=== PATIENT | male | born 1985 | race African-American/Black ===

== ENCOUNTER 2024-12-17 18:02 | Inpatient (IN) | payer OTHER, SELFPAY ==
--- OUTSIDE RECORDS SUMMARY | 2024-12-16 13:22 | XMS_ITS | Encounter Summary ---
Author Organization [facility] ystem Address [address] [place] [address] Phone Care Team Providers Care Sap Senior Developer Name Role Phone Emory PrattSarmad Primary Care Provider + [phone] Reason for Visit * Reason Comments Hallucinations X1 month Suicidal * Auth/Cert (Routine) Specialty Diagnoses / Procedures Referred By Arabella diamond Referred To Contact Diagnoses Schizoaffective disorder, bipolar type (CMS/HCC) Referral ID Status Reason Start Date Expiration Date Visits Re quested Visits Authorized [id number] 1 1 Encounter Details Date Type Department Care Team (Latest Contact Info) Description 12/16/2024 1:22 PM EDT - 12/17/2024 3:13 PM EDT Hospital Encounter [facility] - Emergency Department [address] [place] [phone] Mary Monte MD [address] [place] [address] [phone] Kemar Thompson MD [address] [place] [address] [phone] William Lizarraga MD [address] [place] [address] [phone] Maura Sim DO [address] [place] [address] Js Negron MD [address] [facility] [place] [address] Psychosis, unspecified psychosis type (CMS/HCC) (Primary Dx) Discharge Disposition: Psychiatric Facility Social History Tobacco Use Types Packs/Day Years Used Date Smoking Tobacco: Former Cigarettes Smokeless Tobacco: Never Tobacco Cessation:Counseling Given: Not Answered Sex and Gender Information Value Date Recorded Sex Assigned at Not on file Legal Sex Male 1:10 PM EDT Gender Identity Not on file Sexual Orientation Not on file documented as of this encounter Last Filed Vital Signs Vital Sign Reading Time Taken Comments Blood Pressure 108/69 12/17/2024 2:08 PM EDT Pulse 68 12/17/2024 2:08 PM EDT Temperature 36.8 C (98.2 F) 12/17/2024 2:08 PM EDT Respiratory Rate 16 12/17/2024 2:08 PM EDT Oxygen Saturation 99% 12/17/2024 2: 08 PM EDT Inhaled Oxygen Concentration - - Weight 87.5 kg (192 lb 14.4 oz) 12/16/2024 1:42 PM EDT Height - - Body Mass Index - - documented in this encounter Discharge Summaries * Kylee Damon NP - 12/17/2024 2:27 PM EDT Psychiatric Observation Discharge Summary Patient Name: Andre Rodriguez Date of : 1985 Date of Service: 12/17/2024 Length of Service: 12/16/2024 - 12/17/2024 Final Diagnoses: Problem List[1] CURRENT DIAGNOSIS: Schizoaffective disorder bipolar type Problem List[2] REASON FOR ADMISSION TO PO: CAH to harm self, increased paranoia HOSPITAL COURSE Admitted to Psychiatric Observation Service for management of psychosis Increased in Zyprexa at bedtime dosing Limited improvement in symptoms Psychosis continued throughout hospitalization continue to recommend inpatient psychiatric placement, [facility] has found placement at [facility] where patient will be transferred to for ongoing care. DISCHARGE MEDICATIONS Current Medications[3] MENTAL STATUS UPON DISCHARGE General Appearance: Well groomed, alert able to engage in assessment Attention: good Orientation: Person, Place, Location and Time Cooperativeness: Pleasant and easy to engage Psychomotor Activity: Laying in bed, does not appear restless Muscle Strength and Tone: WNL Gait and Station: No gait imbalances noted Eye Contact: Good Speech: Normal rate and rhythm Mood: depressed Affect: constricted range of affect Thought Process/Stream: Linear and organized Thought Content:talking about poor appetite Delusions: Paranoia ongoing Perceptual Hallucinations: Not reported today recent CAH Sensorium: Alert General fund of knowledge: Intact Recent & Remote Memory: Intact Insight: Poor Judgment: Impaired Suicidal thoughts: Not reported today recent SI Homicidal thoughts: Not reported ROS Constitutional: No fever, no weight loss Musculoskeletal: NO EPS Positive: depression, recent SI with CAH and paranoia Negative for: headache, sore throat, chest pain, dizziness, blurred vision, fatigue, joint pain, constipation, skin itchiness, dysuria, cough, SOB, vomiting, diarrhea, nausea, abdominal pain. CONDITION AT DISCHARGE Continues with depression and concerns for psychosis Danger to self with impaired insight/judgement at risk of harming self or others DISPOSITION Requires Psychiatric Inpatient level of Care POST-DISCHARGE PLAN: Admit to [facility] Accepting Physician - Dr. Ino Damon NP 12/17/2024 [1] Patient Active Problem List Diagnosis Schizoaffective disorder, bipolar type (CMS/HCC) [2] Patient Active Problem List Diagnosis Schizoaffective disorder, bipolar type (CMS/HCC) [3] Current Facility-Administered Medications: melatonin tablet 6 mg, 6 mg, Oral, Nightly, VainiCrystal maciasona Bushra, BACKPACKERS MANAGER, 6 mg at 12/16/242004 pantoprazole (PROTONIX) EC tablet 40 mg, 40 mg, Oral, Daily on empty stomach, Vainius, Aldona Bushra, BACKPACKERS MANAGER, 40 mg at 12/17/24 0629 propranolol LA (INDERAL LA) 24 hr capsule 60 mg, 60 mg, Oral, Daily, Vainius, Aldona Bushra, BACKPACKERS MANAGER, 60 mg at 12/17/24 0842 acetaminophen (TYLENOL) tablet 650 mg, 650 mg, Oral, q6h PRN, Janny Walden Bushra, BACKPACKERS MANAGER OLANZapine (ZYPREXA) tablet 2.5 mg, 2.5 mg, Oral, q6h PRN, Janny Walden CNP hydrOXYzine (ATARAX) tablet 25 mg, 25 mg, Oral, TID PRN, Janny Walden CNP OLANZapine (ZYPREXA) tablet 7.5 mg, 7.5 mg, Oral, Nightly, Janny Walden CNP, 7.5 mg at 12/16/242004 Current Outpatient Medications: propranolol LA (INDERAL LA) 60 MG 24 hr capsule, Take 60 mg by mouth daily, Disp: , Rfl: pantoprazole (PROTONIX) 40 MG EC tablet, Take 40 mg by mouth daily, Disp: , Rfl: Paliperidone Palmitate ER 156 MG/ML suspension prefilled syringe injection, Inject 156 mg intramuscularly, Disp: , Rfl: OLANZapine (ZYPREXA) 5 MG tablet, Take 5 mg by mouth nightly, Disp: , Rfl: melatonin 3 MG tablet, Take 6 mg by mouth, Disp: , Rfl: documented in this encounter Medications at Time of Discharge propranolol LA (INDERAL LA) 60 MG 24 hr capsule Take 60 mg by mouth daily 11/10/2024 02/09/20 pantoprazole (PROTONIX) 40 MG EC tablet Take 40 mg by mouth daily 06/05/2022 Paliperidone Palmitate ER 156 MG/ML suspension prefilled syringe injection Inject 156 mg intramuscularly 08/03/2024 OLANZapine (ZYPREXA) 5 MG tablet Take 5 mg by mouth nightly 11/10/2024 melatonin 3 MG tablet Take 6 mg by mouth 11/10/2024 documented as of this encounter Progress Notes * Kylee Damon NP - 12/17/2024 8:10 AM EDT PSYCH OBSERVATION PROGRESS NOTE Patient Name: Andre Rodriguez Date of : 1985 Date of Service: 12/17/2024 Time of Service: 8:10 AM Time spent with Patient: 28 minutes CURRENT DIAGNOSIS Schizoaffective bipolar type CC: no voices so far Brief history: The patient is a 39 y.o. male with a psychiatric history of Schizoaffective Disorder, Bipolar type who presented on 12/16/2024 to the Emergency Department on Section 12 with symptoms ofpsychosis, paranoid ideation, CAH hallucinations to kill himself with impaired judgement and insight. The patient has a history of inpatient hospitalizations and 1 prior suicide attempt. The patient was recently seen at [facility] for auditory hallucinations. In the ED patient reports CAH reporting voicestell him about a war occurring and that they are going to win and come kill him, reporting paranoiathat the voices are watching him and telling him to kill himself. Patient on Invega IM last dose 11/27, patient seen by [facility] crisis who report the patients family had concerns for poor po intake with paranoia from the voices telling him not to eat. Family expressing noticing a decline the past 2-3 weeks with increased isolation, odd behaviors and reports seeing this behavioral decline during past episodes. Family advocating for inpatient psychiatric placement. Patient reporting compliance with psychotropic medications recently reports decrease in Propranolol dosing in the community. Increased in his Zyprexa to 7.5 mg at bedtime for psychosis management while in the ED with Zyprexa PRN and Atarax PRN in the ED. [facility] involved with an inpatient bed search. 12/17/24 The patient reports he has not heard any further voices today after taking his Zyprexa last night. He reports his +CAH were present the past month and reports they were threatening the patient prior to coming to the hospital. He reports in the past when he was at [facility] in the spring that he received the Invega shot which helped the voices go away. He was aware of having Zyprexa PRN in the ED if thevoices return during the day. He reports ongoing poor appetite, he was agreeable to try and eat something this morning. The patient reports tolerating his psychiatric medications well denying any EPSor oversedation. Plan to continue to monitor patient psychiatric treatment needs while pending place ment.The patient has been stable/non-violent over the last 24 hours. [facility] treatment care planning, requesting COVID and EKG to help facilitate placement,these were ordered. Plan to continue to monitor patient psychiatric treatment needs while pending placement. CURRENT MEDICATIONS: Current Medications[1] CURRENT LABS: Recent Results (from the past 24 hours) Acetaminophen level Collection Time: 12/16/24 3:00 PM Result Value Ref Range Acetaminophen Level <5.1 <15.0 ug/mL CBC with auto differential Collection Time: 12/16/24 3:00 PM Result Value Ref Range WBC 5.5 4.5 - 10.8 10*3 ??l RBC 5.50 4.70 - 6.10 10*6 ??l Hemoglobin 14.3 14.0 - 18.0 g/dL Hematocrit 44.5 42.0 - 52.0 % MCV 81 80 - 95 fL MCH 26.0 25.4 - 39.0 pg MCHC 32.1 31.0 - 37.0 g/dL RDW 12.7 11.5 - 14.5 % Platelets 212 150 - 450 10*3 ??l MPV 11.9 (H) 7.0 - 11.0 fL Neutrophils % 54.5 40.0 - 80.0 % Lymphocytes % 31.7 20.0 - 40.0 % Monocytes % 11.4 (H) 2.0 - 10.0 % Eosinophils % 1.8 1.0 - 6.0 % Basophils % 0.4 0.0 - 1.0 % Immature Granulocyte % 0.2 0.0 - 0.9 % Neutrophils Absolute 3.01 2.00 - 7.00 K/mm3 Absolute Immature Granulocyte 0.01 0.00 - 0.09 K/mm3 Lymphocytes Absolute 1.75 1.00 - 3.00 K/mm3 Monocytes Absolute 0.63 0.20 - 1.00 K/mm3 Eosinophils Absolute 0.10 0.00 - 0.50 K/mm3 Basophils Absolute 0.02 0.00 - 0.10 K/mm3 Comprehensive metabolic panel Collection Time: 12/16/24 3:00 PM Result Value Ref Range Glucose 84 70 - 100 mg/dL BUN 10 6 - 19 mg/dL Creatinine 1.0 0.4 - 1.2 mg/dL eGFR >60.00 >60.00 mL/min/1.73m*2 Sodium 141 135 - 145 mmol/L Potassium 4.1 3.4 - 5.1 mmol/L Chloride 105 98 - 109 mmol/L CO2 20 (L) 22 - 29 mmol/L Anion Gap 16 6 - 16 mmol/L Calcium 9.7 8.5 - 10.5 mg/dL Total Bilirubin 0.9 0.2 - 1.2 mg/dL Alkaline Phosphatase 87 40 - 129 U/L ALT (SGPT) 14 0 - 40 U/L AST 17 0 - 37 U/L Total Protein 7.7 6.0 - 8.5 g/dL Albumin 4.3 3.3 - 5.2 g/dL Ethanol Collection Time: 12/16/24 3:00 PM Result Value Ref Range Ethanol <=10 0 - 10 mg/dL Salicylate level Collection Time: 12/16/24 3:00 PM Result Value Ref Range Salicylate Level <=3.0 3.0 - 30.0 mg/dL Urine drugs of abuse screen Collection Time: 12/16/24 8:00 PM Result Value Ref Range Amphetamines, Urine Screen None Detected None Detected Barbiturates, Urine Screen None Detected None Detected Benzodiazepines, Urine Screen None Detected None Detected Cocaine, Urine Screen None Detected None Detected Opiates, Urine Screen None Detected None Detected Cannabinoids (THC), Urine Screen None Detected None Detected Tricyclic Antidepressants, Urine Screen None Detected None Detected Fentanyl, Urine Screen None Detected None Detected Methadone, Urine Screen None Detected None Detected Oxycodone, Urine Screen None Detected None Detected Buprenorphine, Urine Screen None Detected None Detected Phencyclidine, Urine Screen None Detected None Detected CURRENT MENTAL STATUS Sensorium: Alert Appearance: Normal Grooming Behavior/Activity: Pleasant and easy to engage, sitting in bed Speech: Normal rate and rhythm Affect: Full range of affect, anxious Mood: I'm doing okay Thought Form: Linear and organized Thought Content: talking about improving AH, reports ongoing poor appetite Perceptual: None currently, recent CAH yesterday Delusional Thoughts: paranoia around eating ongoing Suicidal Ideation: None Homicidal Ideation: None Orientation: Person, Place, Location and Time Memory: intact Judgment/Insight: Impaired Attention/Concentration: Poor Capacity: Cannot leave AMA Health Care Proxy: not Invoked EPS: Within Normal Limits Gait: No gait imbalances noted ROS Constitutional: No fever, no weight loss Musculoskeletal: NO EPS Positive: recent CAH, recent SI denies today, ongoing depression Negative for: headache, sore throat, chest pain, dizziness, blurred vision, fatigue, joint pain, constipation, skin itchiness, dysuria, cough, SOB, vomiting, diarrhea, nausea, abdominal pain. TREATMENT RE-ASSESSMENT Reassessment demonstrates improving psychosis tolerating Zyprexa dosing increase, receptive to using PRN Zyprexa if psychosis returns during the day. The patient reports tolerating medications without EPS or oversedation. PRN medications used with positive response. Will continue to monitor ongoingpatient treatment needs. [facility] requesting EKG and COVID test to help with placement which were ordered. PLAN Continue with Psychiatric Observation admission Continue current medications Continue Zyprexa 7.5mg Continue Propranolol LA 60mg every day Continue Melatonin 6mg QHS PRNs Zyprexa 2.5mg PRN q 6hrs to target anxiety, restlessness/irritability, Atarax 25mg TID PRN to target anxiety. Contact family and outpatient providers as needed for treatment and disposition planning Kylee Damon NP 12/17/2024 8:10 AM [1] Current Facility-Administered Medications: melatonin tablet 6 mg, 6 mg, Oral, Nightly, VainiusJanny Bushra, BACKPACKERS MANAGER, 6 mg at 12/16/242004 pantoprazole (PROTONIX) EC tablet 40 mg, 40 mg, Oral, Daily on empty stomach, PiainiusJannye, BACKPACKERS MANAGER, 40 mg at 12/17/24628 propranolol LA (INDERAL LA) 24 hr capsule 60 mg, 60 mg, Oral, Daily, Vainius, Aldona Bushra, BACKPACKERS MANAGER, 60 mg at 12/16/242025 acetaminophen (TYLENOL) tablet 650 mg, 650 mg, Oral, q6h PRN, Janny Walden, BACKPACKERS MANAGER OLANZapine (ZYPREXA) tablet 2.5 mg, 2.5 mg, Oral, q6h PRN, Janny Walden BACKPACKERS MANAGER hydrOXYzine (ATARAX) tablet 25 mg, 25 mg, Oral, TID PRN, Janny Walden BACKPACKERS MANAGER OLANZapine (ZYPREXA) tablet 7.5 mg, 7.5 mg, Oral, Nightly, PiainiJanny macias Bushra, BACKPACKERS MANAGER, 7.5 mg at 12/16/242004 Current Outpatient Medications: propranolol LA (INDERAL LA) 60 MG 24 hr capsule, Take 60 mg by mouth daily, Disp: , Rfl: pantoprazole (PROTONIX) 40 MG EC tablet, Take 40 mg by mouth daily, Disp: , Rfl: Paliperidone Palmitate ER 156 MG/ML suspension prefilled syringe injection, Inject 156 mg intramuscularly, Disp: , Rfl: OLANZapine (ZYPREXA) 5 MG tablet, Take 5 mg by mouth nightly, Disp: , Rfl: melatonin 3 MG tablet, Take 6 mg by mouth, Disp: , Rfl: documented in this encounter H&P Notes * Janny Walden, RAFY - 12/16/2024 7:22 PM EDT PSYCHIATRIC OBSERVATION ADMISSION H&P REASON FOR CONSULT A psychiatric consult was placed by Dr. Mary Monte for evaluation of a patient with auditory hallucinations and paranoid ideation. The patient's record was reviewed, patient was interviewed, and clinical staff were consulted to complete this comprehensive psychiatric consultation. Patient Name: Andre Rodriguez Date of : 1985 Date of Service: 12/16/2024 Time of Service: 7:23 PM Length of Service: 75 minutes Source of information: Patient, Family, Staff collateral CHIEF COMPLAINT: The voices are fighting over me and the ones that will win will come to kill me. HISTORY OF PRESENT ILLNESS The patient is a 39 y.o. male with a psychiatric history of Schizoaffective Disorder, Bipolar type who presented on 12/16/2024 to the Emergency Department on Section 12 with symptoms of psychosis, paranoid ideation, CAH hallucinations to kill himself with impaired judgement and insight. The patient has a history of inpatient hospitalizations and 1 prior suicide attempt. The patient was recently seen at [facility] for auditory hallucinations. The patient presented sitting on stretcher was constricted, disorganized and easy to engage. The patient reported that his voices have been really bad this past month. The patient reported that the voices told him that there is a war outside and told him that they are fight over him and the voices that will win will come to kill him. The patient reported that the voices are watching his every move and told him to kill himself. The patient reported that not only are the voices after him but alsothe ruler of this earth is after him, but does not know what he looks like and he is scared. The patient reported that he has been compliant with his medication and got his last Invega IM 11/27/24. Thepatient denies suicidal ideation and homicidal ideation. Collateral from Tar Processing Technician Pati: Clinician reported that when she evaluated the patient he was endorsing CAH to kill himself and expressed that he was hopeless about the voices and that heavenis the only place that they would stop. Clinician reported that the patient did not elaborate on this SI. Clinician reported that the patient's siblings reported that the patient has had a low appetite the past two week and stating that the voices are telling him that the food is not clean and thathe has been having paranoid delusions about god and demons. Collateral from Sister Eugenie Rodriguez: Sister reported that she monitors her brother's mental healthand has seen a significant decline in the patient over the past 2 to 3 weeks as the patient has started to become isolated, has been posting weird pictures and stated to her that he has been hearing voices. Sister reported that she has seen this pattern in the patient and that these behaviors indicate a significant decline in mental health. Sister reported that she is concerned about this recent decline and is advocating for a higher level of care. At this time [facility] are involved in the treatment planning for this patient. Presenting Problem: CAH to kill self, AH, PI Frequency: increased over the past 3 weeks Modifiable factors: medication management, coping skills Severity: severe PAST PSYCHIATRIC HISTORY Outpatient psychiatric providers: Provider: Dr. Chiquita Lazaro Therapist: denies Past medication trials: Risperidone, Haldol, Cogentin History of inpatient psychiatric hospitalization: numerous History of suicide attempts: age 19, OD via aspirin History of Self-Injurious behavior: punches head to get rid of voices History of violence towards others: denies History of eating disorder:denies History of Trauma:denies FAMILY PSYCHIATRIC HISTORY Family history of psychiatric illness: denies SUBSTANCE HISTORY: Only listing what is appropriate History of: Alcohol use: Denies Tobacco use: Denies Marijuana use: Denies Opioid use: Denies Cocaine use: Denies Other: Denies History of detox/treatment admissions for substance use: denies History of substance related legal issues: denies MEDICAL/SURGICAL HISTORY: Name of outpatient PCP: Emory Pratt History of: Head injury: Denies Seizures: Denies METROLOGY TECHNICIAN infection: Denies Chronic pain: Denies Obstructive Sleep Apnea ([place]):Denies SOCIAL HISTORY: Living situation: lives with Sister and Friend : denies Children: denies 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 Social History Socioeconomic History Marital status: Single Spouse name: Not on file Number of children: Not on file Years of education: Not on file Highest education level: Not on file Occupational History Not on file Tobacco Use Smoking status: Former Types: Cigarettes Smokeless tobacco: Never Substance and Sexual Activity Alcohol use: Not on file Drug use: Not on file Sexual activity: Not on file Other Topics Concern Not on file Social History Narrative Not on file Social Drivers of Health Financial Resource Strain: Not on File (02/04/2022) Received from [facility] Financial Resource Strain Financial Resource Strain: 0 Food Insecurity: Not on File (02/04/2022) Received from [facility] Food Insecurity Food: 0 Transportation Needs: Not on File (02/04/2022) Received from [facility] Transportation Needs Transportation: 0 Physical Activity: Not on File (12/13/2018) Received from [facility] Physical Activity Physical Activity: 0 Stress: Not on File (12/13/2018) Received from [facility] Stress Stress: 0 Social Connections: Not on File (12/27/2023) Received from [facility] Social Connections Connectedness: 0 Intimate Partner Violence: Not on file Housing Stability: Not on File (02/04/2022) Received from [facility] Housing Stability Housin ALLERGIES: Allergies[1] RELEVANT LABS: Recent Results (from the past week) Acetaminophen level Collection Time: 12/16/24 3:00 PM Result Value Ref Range Acetaminophen Level <5.1 <15.0 ug/mL CBC with auto differential Collection Time: 12/16/24 3:00 PM Result Value Ref Range WBC 5.5 4.5 - 10.8 10*3 ??l RBC 5.50 4.70 - 6.10 10*6 ??l Hemoglobin 14.3 14.0 - 18.0 g/dL Hematocrit 44.5 42.0 - 52.0 % MCV 81 80 - 95 fL MCH 26.0 25.4 - 39.0 pg MCHC 32.1 31.0 - 37.0 g/dL RDW 12.7 11.5 - 14.5 % Platelets 212 150 - 450 10*3 ??l MPV 11.9 (H) 7.0 - 11.0 fL Neutrophils % 54.5 40.0 - 80.0 % Lymphocytes % 31.7 20.0 - 40.0 % Monocytes % 11.4 (H) 2.0 - 10.0 % Eosinophils % 1.8 1.0 - 6.0 % Basophils % 0.4 0.0 - 1.0 % Immature Granulocyte % 0.2 0.0 - 0.9 % Neutrophils Absolute 3.01 2.00 - 7.00 K/mm3 Absolute Immature Granulocyte 0.01 0.00 - 0.09 K/mm3 Lymphocytes Absolute 1.75 1.00 - 3.00 K/mm3 Monocytes Absolute 0.63 0.20 - 1.00 K/mm3 Eosinophils Absolute 0.10 0.00 - 0.50 K/mm3 Basophils Absolute 0.02 0.00 - 0.10 K/mm3 Comprehensive metabolic panel Collection Time: 12/16/24 3:00 PM Result Value Ref Range Glucose 84 70 - 100 mg/dL BUN 10 6 - 19 mg/dL Creatinine 1.0 0.4 - 1.2 mg/dL eGFR >60.00 >60.00 mL/min/1.73m*2 Sodium 141 135 - 145 mmol/L Potassium 4.1 3.4 - 5.1 mmol/L Chloride 105 98 - 109 mmol/L CO2 20 (L) 22 - 29 mmol/L Anion Gap 16 6 - 16 mmol/L Calcium 9.7 8.5 - 10.5 mg/dL Total Bilirubin 0.9 0.2 - 1.2 mg/dL Alkaline Phosphatase 87 40 - 129 U/L ALT (SGPT) 14 0 - 40 U/L AST 17 0 - 37 U/L Total Protein 7.7 6.0 - 8.5 g/dL Albumin 4.3 3.3 - 5.2 g/dL Ethanol Collection Time: 12/16/24 3:00 PM Result Value Ref Range Ethanol <=10 0 - 10 mg/dL Salicylate level Collection Time: 12/16/24 3:00 PM Result Value Ref Range Salicylate Level <=3.0 3.0 - 30.0 mg/dL MOST RECENT VITAL SIGNS: Vitals: 12/16/24 1709 BP: 128/81 Pulse: 81 Resp: 17 Temp: 99.4 ??F (37.4 ??C) SpO2: 97% MENTAL STATUS EXAM: Physical Exam: Musculoskeletal: moves all extremities; no abnormal movements Gait: normal EPS:none MSE: Appearance: wearing green scrubs and well groomed Behavior: cooperative, eye contact-poor, easy to engage Psychomotor Activity: within normal limits Speech: soft normal rate and rhythm Mood: depressed Affect: constricted range of affect Thought Process: tangential and disorganized Associations: no loosening of associations Thought Content: thinks voices and ruler of the earth is coming after him, they are going to kill him Suicidal Ideation: command auditory hallucination to kill himself Homicidal Ideation: no homicidal ideation Perceptions/Experiences: auditory hallucinations Insight: severely impaired Judgement: severely impaired Cognitive Exam: Orientation: oriented X3 Memory: immediate recall intact, short term memory intact, and talent development director memory intact Attention/Concentration: intact to observation Fund of Knowledge: average Language: normal comprehension Capacity: Cannot leave AMA Health Care Proxy: not invoked 1:1 SI Precautions assessment Suicidal thoughts: CAH telling him to kill himself. -Plan:No -Intent: No Suicidal or Self-harm behaviors: punching head to get rid of voices Risk factors: psychosis, prior SA Protective factors: Patient in good behavioral controls and is able to plan for safety, agreeable to reach out to staff if feeling unsafe. At this time recommend downgrade 2:1 suicide precautions, patient was having command hallucinationsto kill himself and continues to have auditory hallucinations, will continue to assess patient ongoing treatment needs throughout hospital stay. For additional documentation please refer to nursing psychosocial documentation for standardized C-SSRS re-assessment. REVIEW OF SYSTEMS Constitutional: No fever, no weight loss Musculoskeletal: NO EPS Positive: CAH to kill self, AH, PI Negative for: headache, sore throat, chest pain, dizziness, blurred vision, fatigue, joint pain, constipation, skin itchiness, dysuria, cough, SOB, vomiting, diarrhea, nausea, abdominal pain. CURRENT MEDICATIONS OUTPATIENT: Current Outpatient Medications Medication Instructions melatonin 6 mg OLANZapine (ZYPREXA) 5 mg, Nightly Paliperidone Palmitate ER 156 mg pantoprazole (PROTONIX) 40 mg, Daily propranolol LA (INDERAL LA) 60 mg, Daily ASSESSMENT: The patient presented to the Emergency Department with increased symptoms of auditory hallucinations, command hallucinations to kill self and paranoid hallucinations in the context of underlying worsening of psychosis. The patient presents with symptoms consistent with Schizoaffective disorder, bipolar type. Since the patient has had an increase in auditory hallucinations, having command hallucinations to kill himself, stating that the only way voices are going to go away is in heaven and increase in paranoid ideation he is at risk of hurting himself and is showing poor insight and judgement meeting Section 12 criteria and is recommended for higher level of care for safety and stabilizationand medication management. The patient reported being compliant with home medications of: Invega IM (last dose 11/27/24), Pantoprazole, Zyprexa, Melatonin and Propranolol and expressed interest in continuing these medications while in the Emergency Department. The patient reported that the only change that was made this month was to decrease the propranolol. The patient reported that he does not know why he has decompensated. Discussed and the patient agreed to increase Zyprexa to 7.5mg to help with current exacerbation ofpsychosis and to start Zyprexa 2.5mg PRN for psychosis, irritability, restlessness, anxiety and insomnia as well as Atarax 25mg PRN for anxiety. Discussed risks and benefits of these medications withthe patient and the patient was receptive to this medication treatment plan while in the ED. Continue to evaluate patient's mental status and monitor sleep and appetite closely, observe any potential side effects from psychiatric medications, and will recommend to start tapering antipsychotic medications once behavior is stabilized. Plan to continue to monitor possible interactions betweenpsychiatric medications and medical medications. Will continue to provide counseling to help patient deal with stressors, and provide education and support, while continuing to work with medicine to help facilitate patient's clinical progress. HPI and nursing notes were reviewed. [place] are involved in the ongoing treatment planning for thispatient. At this time the patient may not leave AMA. Will continue a 2:1 sitter at this time. Plan to continue to monitor the patient while the patient remains in the hospital. Recommend at this time admission to psychiatric observation for medication adjustment and monitoring, at this time patient presents as at risk of harming self and is showing poor judgement and insight. Medical review of the labs: Ethanol<=10, DIAGNOSTIC IMPRESSION: Schizoaffective disorder, bipolar type F Code: F25.0 Principal Problem: Schizoaffective disorder, bipolar type (CMS/[facility]) (POA: Yes) PLAN: Admit to Psychiatric Observation Medication plan: Restart and increased Zyprexa 7.5mg Restart Propranolol LA 60mg every day Restart Melatonin 6mg QHS PRN's: Start Zyprexa 2.5mg PRN q 6hrs to target anxiety, restlessness/irritability, insomnia and psychosis Start Atarax 25mg TID PRN to target anxiety. Monitor: Continue 2:1 video monitoring to mitigate suicide, psychosis and elopement risk and monitor ongoing patient safety while boarding in the ED. Patient may not leave AMA Discussed risks and benefits of medication plan with patient who was agreeable to aforementioned treatment plan. Update Dr. Conte to inform team of disposition. [facility] involved with treatment planning. Janny Walden CNP 12/16/2024 7:23 PM [1] No Known Allergies documented in this encounter ED Notes * Mary Monte MD - 12/16/2024 2:17 PM EDT CHIEF COMPLAINT: Chief Complaint Patient presents with Hallucinations X1 month Suicidal HISTORY OF PRESENT ILLNESS: Medical records and electronic records reviewed. Patient interviewed and patient examined. HPI provided by pt and cart review. Andre is a 39 y.o. male with PMH anxiety/depression and schizoaffective disorder, GERD, who presents for auditory hallucinations. Pt was seen at [facility] on 12/09/24 for auditory hallucinations. He was deemed safe for DC by psychiatry. He presents from [facility] on a section 12 for auditory hallucinations telling him to kill himself as well as depression and feelings of hopelessness. They also report paranoia and delusions. Patient is calm and cooperative here, denies complaints. Denies substance use. Denies trauma or physical complaints. PAST MEDICAL, FAMILY AND SOCIAL HISTORY: Past Medical History: Diagnosis Date Mental health disorder Surgical History[1] Social History Tobacco Use Smoking status: Former Types: Cigarettes Smokeless tobacco: Never Substance Use Topics Alcohol use: Not on file Social History Substance and Sexual Activity Drug Use Not on file No family history on file. MEDICATIONS: Medications melatonin tablet 6 mg (has no administration in time range) pantoprazole (PROTONIX) EC tablet 40 mg (has no administration in time range) propranolol LA (INDERAL LA) 24 hr capsule 60 mg (has no administration in time range) acetaminophen (TYLENOL) tablet 650 mg (has no administration in time range) OLANZapine (ZYPREXA) tablet 2.5 mg (has no administration in time range) hydrOXYzine (ATARAX) tablet 25 mg (has no administration in time range) OLANZapine (ZYPREXA) tablet 7.5 mg (has no administration in time range) REVIEW OF SYSTEMS: Constitutional: No fever or chills Head and Eyes: No visual change. ENT/Neck: No sore throat, nose bleed Heart: No chest pain, palpitations Lungs: No SOB GI: No bloody stools /Flank: No dysuria, frequency Musculoskeletal / back: No back or extremity pain Neuro: No headache Skin: No rash Psych: + depression Heme/Lymph: No bruising All other systems were reviewed and negative except as noted PHYSICAL EXAM: General:Vitals as per nursing notes. Patient is oriented x3. Patient is nontoxic appearing. Head/Eyes:The head is normocephalic and atraumatic. The pupils are equal sized and reactive to light. The extraocular muscles are intact. ENT:Patient's airway is intact. The mucous membranes are moist. Neck:The neck has a full-range of motion. Chest/Respiratory: Respiratory effort is normal. The lungs are clear to auscultation bilaterally. The chest wall is non-tender. Cardiovascular: The heart has a regular rate and rhythm.. GI/Abdomen: Abdomen is soft. The abdomen is nontender and nondistended. No rebound or guarding. Genitourinary:There is no costovertebral angle tenderness. Musculoskeletal:The patient has a normal range of motion for all limbs and joints. No significant lower extremity edema. Skin:The patient's skin is intact. Neurologic:The neurological exam shows no focal deficits. Psychiatric: Affect is flat/guarded. LABORATORY STUDIES: Labs Reviewed CBC WITH AUTO DIFFERENTIAL - Abnormal Result Value WBC 5.5 RBC 5.50 Hemoglobin 14.3 Hematocrit 44.5 MCV 81 MCH 26.0 MCHC 32.1 RDW 12.7 Platelets 212 MPV 11.9 (*) Neutrophils % 54.5 Lymphocytes % 31.7 Monocytes % 11.4 (*) Eosinophils % 1.8 Basophils % 0.4 Immature Granulocyte % 0.2 Neutrophils Absolute 3.01 Absolute Immature Granulocyte 0.01 Lymphocytes Absolute 1.75 Monocytes Absolute 0.63 Eosinophils Absolute 0.10 Basophils Absolute 0.02 COMPREHENSIVE METABOLIC PANEL - Abnormal Glucose 84 BUN 10 Creatinine 1.0 eGFR >60.00 Sodium 141 Potassium 4.1 Chloride 105 CO2 20 (*) Anion Gap 16 Calcium 9.7 Total Bilirubin 0.9 Alkaline Phosphatase 87 ALT (SGPT) 14 AST 17 Total Protein 7.7 Albumin 4.3 ACETAMINOPHEN LEVEL - Normal Acetaminophen Level <5.1 ETHANOL - Normal Ethanol <=10 SALICYLATE LEVEL - Normal Salicylate Level <=3.0 URINE DRUGS OF ABUSE SCREEN IMAGING STUDIES: No orders to display PROCEDURES: Procedures EKG: NA ED COURSE & MEDICAL DECISION MAKING: Differential includes decompensated psychiatric disease, psychosis. No signs of trauma or intoxication. Vital signs within normal limits. No physical complaints. No focal neurodeficits. Independent Interpretation of Studies: Basic lab work unremarkable. ED and nursing records reviewed. Additional pertinent available records reviewed: [facility] Everywhere reviewed Discussion of management with physician, qualified health professional, and/or appropriate source: Discussed with psychiatry, plan for admission patient bed search Escalation of care to admission or observation considered: Plan for inpatient psychiatric admission Consideration of treatments or testing, not performed: None at this time. Chronic Conditions affecting care include: History of schizoaffective disorder Social Determinants of Health significantly affecting the care and disposition of this patient include: Lives in the community Final diagnoses: [F29] Psychosis, unspecified psychosis type (CMS/HCC) [1] History reviewed. No pertinent surgical history. Mary Monte MD 12/16/241919 * Leslie Suarez RN - 12/16/2024 1:40 PM EDT Andre Rodriguez is a 39 y.o. male presenting with Hallucinations (X1 month) and Suicidal Pt [facility]o telling him to kill himself. Pt calm/cooperative en route. Pt vitally stable. documented in this encounter Miscellaneous Notes * Behavioral Health - Avila Baker MSW - 12/17/2024 12:26 PM EDT Accepted to [facility] 12/17 @ 4 PM, Dr. Mckinnon. Auth form sent to [facility]. * Behavioral Health - Mary Raymundo BA - 12/17/2024 8:33 AM EDT Clt being reveiwed for admission to [facility] [place] requesting EKG and UTOX, TW faxed UTOX and requested EKG from nursing. documented in this encounter Plan of Treatment Not on file documented as of this encounter Procedures Procedure Name Priority Date/Time Associated Diagnosis Comments COVID-19 ([facility]) Routine 12/17/2024 8:36 AM EDT URINE DRUGS OF ABUSE SCREEN STAT 12/16/2024 8:00 PM EDT CBC WITH AUTO DIFFERENTIAL STAT 12/16/2024 3:00 PM EDT ETHANOL STAT 12/16/2024 3:00 PM EDT ACETAMINOPHEN LEVEL STAT 12/16/2024 3 :00 PM EDT SALICYLATE LEVEL STAT 12/16/2024 3:00 PM EDT COMPREHENSIVE METABOLIC PANEL STAT 12/16/2024 3:00 PM EDT documented in this encounter Results * COVID-19 ([facility]) (12/17/2024 8:36 AM EDT) [facility] [address] COVID-19 ([facility]) PCR Negative Negative [facility]-DP H 12/17/2024 12:11 PM EDT [facility] Swab (Nasopharynx) Non-blood Collection / Unknown 12/17/2024 8:36 AM EDT 12/17/2024 8:42 AM EDT Kylee Damon NP LAB MICROBIOLOGY - GENERA L ORDERABLES Final Result [facility] [address] [place] [address], [place] [phone] * Urine drugs of abuse screen (12/16/2024 8:00 PM EDT) [facility] [address] Amphetamines, Urine Screen None Detected None Detected 12/16/2024 9:21 PM EDT [facility] Barbiturates, Urine Screen None Detected None Detected 12/16/2024 9:21 PM EDT [facility] Benzodiazepines, Urine Screen None Detected None Detected 12/16/2024 9:21 PM EDT [facility] Cocaine, Urine Screen None Detected None Detected 12/16/2024 9:21 PM [facility] Opiates, Urine Screen None Detected None Detected 12/16/2024 9:21 PM [facility] Cannabinoids (THC), Urine Screen None Detected None Detected 12/16/2024 9:21 PM EDT [facility] Tricyclic Antidepressants, Urine Screen None Detected None Detected 12/16/2024 9:21 PM EDT [facility] Fentanyl, Urine Screen None Detected None Detected 12/16/2024 9:21 PM EDT [facility] Methadone, Urine Screen None Detected None [facility] Oxycodone, Urine Screen None Detected None Detected 12/16/2024 9:21 PM T [facility] Buprenorphine, Urine Screen None Detected None Detected 12/16/2024 9:21 PM EDT [facility] Phencyclidine, Urine Screen None Detected None Detected 12/16/2024 9:21 PM EDT [facility] Urine Urine specimen obtained by clean catch procedure / Unknown Non-blood Collection / Unknown 12/16/2024 8:00 PM EDT 12/16/2024 8:52 PM EDT [facility] - 12/16/2024 9:21 PM EDT This is a screening test for urine drugs of ABUSE only, performed using Zohreh Beni analyzer. It is not designed or intended to monitor treatment or assess patient compliance. Those purposes are best served by a specific assay for the specific drug being administered. Like any screening test, this drug screen has inherent limitations. A result of NONE DETECTED indicates the absence of the major metabolites of the tested drugs or their presence at a level below the cut-off concentration (see below). False negative results may be due to the pharmacokinetics of the drug and/or the timing of the sample relative to the use of the drug in question. A POSITIVE result is a presumptive qualitative positive which indicates that the major metabolites of the tested drugs are likely present at or above their cut- off concentration (see below). False positive results may be caused by cross-reacting substances. Unconfirmed positive results of this screening test must not be used for non- medical purposes. Cutoffs for Drug Classes: Amphetamines 1000 ng/mL Barbiturates 200 ng/mL Benzodiazepines 100 ng/mL Cocaine 300 ng/mL Opiates 300 ng/mL TCA 300 ng/mL THC 50 ng/mL Fentanyl 5 ng/mL Methadone 300 ng/ml Oxycodone 100 ng/ml Buprenorphine 5 ng/ml Phencyclidine 25 ng/ml us Janny Walden [facility] LAB URINE ORDERABLES F inal Result [facility] [address] [place] [address], * Salicylate level (12/16/2024 3:00 PM EDT) Salicylate Level <=3.0 3.0 - 30.0 mg/dL 12/16/2024 3:38 PM EDT [facility] Blood Venous blood / Unknown Venipuncture / Unknown 12/16/2024 3:00 PM EDT 12/16/2024 3:09 PM EDT us Mary Monte MD LAB BLOOD ORDERABLES Final R esult [facility] [address] [place] [address], [place] [phone] * Ethanol (12/16/2024 3:00 PM EDT) Ethanol <=10 0 - 10 mg/dL 12/16/2024 3:38 PM EDT [facility] Comment:NONE DETECTED: Resul t <10 should be interpreted as NONE DETECTED. Blood Venous blood / Unknown Venipuncture / Unknown 12/16/2024 3:00 PM EDT 12/16/2024 3:09 PM EDT us Mary Monte MD LAB BLOOD ORDERABLES Final R esult [facility] [address] [place] [address], [place] [phone] * (ABNORMAL) Comprehensive metabolic panel (12/16/2024 3:00 PM EDT) Glucose 84 70 - 100 mg/dL 12/16/2024 3:42 PM EDT [facility] BUN 10 6 - 19 mg/dL 12/16/2024 3:42 PM EDT [facility] Creatinine 1.0 0.4 - 1.2 mg/dL 12/16/2024 3:42 PM EDT [facility] eGFR >60.00 >60.00 mL/min/1.7 3m*2 12/16/2024 3:42 PM EDT [facility] Sodium 141 135 - 145 mmol/L 12/16/2024 3:42 PM EDT [facility] Potassium 4.1 3.4 - 5.1 mmol/L 12/16/2024 3:42 PM EDT [facility] Chloride 105 98 - 109 mmol/L 12/16/2024 3:42 PM EDT [facility] CO2 20(L) 22 - 29 mmol/L 12/16/2024 3:42 PM EDT [facility] Anion Gap 16 6 - 16 mmol/L 12/16/2024 3:42 PM EDT [facility] Calcium 9.7 8.5 - 10.5 mg/dL 12/16/2024 3:42 PM EDT [facility] Total Bilirubin 0.9 0.2 - 1.2 mg/dL 12/16/2024 3:42 PM EDT [facility] Alkaline Phosphatase 87 40 - 129 U/L 12/16/2024 3:42 PM EDT [facility] ALT (SGPT) 14 0 - 40 U/L 12/16/2024 3:42 PM EDT [facility] AST 17 0 - 37 U/L 12/16/2024 3:42 PM EDT [facility] Total Protein 7.7 6.0 - 8.5 g/dL 12/16/2024 3:42 PM EDT [facility] Albumin 4.3 3.3 - 5.2 g/dL 12/16/2024 3:42 PM EDT [facility] Blood Venous blood / Unknown Venipuncture / Unknown 12/16/2024 3:00 PM EDT 12/16/2024 3:09 PM EDT Mary Monte MD LAB BLOOD ORDERABLES Final R esult [facility] [address] [place] [address], * (ABNORMAL) CBC with auto differential (12/16/2024 3:00 PM EDT) WBC 5.5 4.5 - 10.8 10*3 l 12/16/2024 3:24 PM EDT [facility] RBC 5.50 4.70 - 6.10 10*6 l 12/16/2024 3:24 PM EDT [facility] Hemoglobin 14.3 14.0 - 18.0 g/dL 12/16/2024 3:24 PM EDT [facility] Hematocrit 44.5 42.0 - 52.0 % [facility] M[facility] 81 80 - 95 fL 12/[facility]2024 3[facility] MCH 26.0 25.4 - 39.0 pg 12/16/2024 3:24 PM [facility] MCHC 32.1 31.0 - 37.0 g/dL 12/16/2024 3:24 PM [facility] RDW 12.7 11.5 - 14.5 % 12/16/2024 3:24 PM [facility] Platelets 212 150 - 450 10*3 l 12/16/2024 3:24 PM [facility] MPV 11.9(H) 7.0 - 11.0 fL 12/16/2024 3:24 PM [facility] Neutrophils % 54.5 40.0 - 80.0 % 12/16/2024 3:24 PM [facility] Lymphocytes % 31.7 20.0 - 40.0 % 12/16/2024 3:24 PM [facility] Monocytes % 11.4(H) 2.0 - 10.0 % 12/16/2024 3:24 PM [facility] Eosinophils % 1.8 1.0 - 6.0 % 12/16/2024 3:24 PM [facility] Basophils % 0.4 0.0 - 1.0 % 12/16/2024 3:24 PM [facility] Immature Granulocyte % 0.2 0.0 - 0.9 % 12/16/2024 3:24 PM [facility] Neutrophils Absolute 3.01 2.00 - 7.00 K/mm3 12/16/2024 3:24 PM [facility] Absolute Immature Granulocyte 0.01 0.00 - 0.09 K/mm3 12/16/2024 3:24 PM [facility] Lymphocytes Absolute 1.75 1.00 - 3.00 K/mm3 12/16/2024 3:24 PM [facility] Monocytes Absolute 0.63 0.20 - 1.00 K/mm3 12/16/2024 3:24 PM [facility] Eosinophils Absolute 0.10 0.00 - 0.50 K/mm3 12/16/2024 3:24 PM [facility] Basophils Absolute 0.02 0.00 - 0.10 K/mm3 12/16/2024 3:24 PM EDT [facility] Blood Venous blood / Unknown Venipuncture / Unknown 12/16/2024 3:00 PM EDT 12/16/2024 3:11 PM EDT us Mary Monte MD LAB BLOOD ORDERABLES Final R esult [facility] [address] [place] [address], [place] [phone] * Acetaminophen level (12/16/2024 3:00 PM EDT) Acetaminophen Level <5.1 <15.0 ug/mL 12/16/2024 3:38 PM EDT [facility] Blood Venous blood / Unknown Venipuncture / Unknown 12/16/2024 3:00 PM EDT 12/16/2024 3:09 PM EDT us Mary Monte MD LAB BLOOD ORDERABLES Final R esult Performing Organization Address City/[facility]/ZIP Co de Phone Number [facility] [address] [place] [address], [place] [phone] documented in this encounter Visit Diagnoses Diagnosis Schizoaffective disorder, bipolar type (CMS/HCC)- Primary Schizoaffective disorder, unspecified condition Psychosis, unspecified psychosis type (CMS/HCC) documented in this encounter Admitting Diagnoses Diagnosis Schizoaffective disorder, bipolar type (CMS/HCC) Schizoaffective disorder, unspecified condition documented in this encounter Administered Medications Active Administered Medications - up to 3 most recent administrations Medication Order MAR Action Action Date Dose Rate Site melatonin tablet 6 mg 6 mg, Oral, Nightly, First dose on Fri12/16/24 at 2100 Given 12/16/2024 8:05 PM EDT 6 mg OLANZapine (ZYPREXA) tablet 7.5 mg 7.5 mg, Oral, Nightly, First dose (after last modification) on Fri12/16/24 at 2100 Given 12/16/2024 8:05 PM EDT 7.5 mg pantoprazole (PROTONIX) EC tablet 40 mg 40 mg, Oral, Daily on empty stomach, First dose on Fri12/17/24 at 0600, - --------DO NOT CRUSH OR CHEW.-------- - Given 12/17/2024 6:29 AM EDT 40 mg propranolol LA (INDERAL LA) 24 hr capsule 60 mg 60 mg, Oral, Daily, First dose on Fri12/16/24 at 1917, - --------DO NOT CRUSH OR CHEW.-------- -, Hold for SBP less than: 100, Hold for HR less than: 60 Given 12/17/2024 8:42 AM EDT 60 mg Given 12/16/2024 8:26 PM EDT 60 mg documented in this encounter Active and Recently Administered Medications Times are shown in EDT. Scheduled Medication Order 12/15/2024 12/16/2024 12/17/2024 melatonin tablet 6 mg 6 mg, Oral, Nightly, First dose on Fri12/16/24 at 2099 2004 (Given - Provider: Haily Maldonado RN) 2099 (Due) OLANZapine (ZYPREXA) tablet 7.5 mg 7.5 mg, Oral, Nightly, First dose (after last modification) on Fri12/16/24 at 2099 2004 (Given - Provider: Haily Maldonado RN) 2099 (Due) pantoprazole (PROTONIX) EC tablet 40 mg 40 mg, Oral, Daily on empty stomach, First dose on Fri12/17/24 at 0600, - --------DO NOT CRUSH OR CHEW.-------- - 628 (Given - Provid er: Haily Maldondao RN) propranolol LA (INDERAL LA) 24 hr capsule 60 mg 60 mg, Oral, Daily, First dose on Fri12/16/24 at 191, - --------DO NOT CRUSH OR CHEW.-------- -, Hold for SBP less than: 100, Hold for HR less than: 60 2025 (Given - Provider: Haily Maldonado RN) 0842 (Given - Provider: Valerie Strange RN) PRN Medication Order 12/15/2024 12/16/2024 12/17/2024 acetaminophen (TYLENOL) tablet 650 mg 650 mg, Oral, Every 6 hours PRN, pain 1-3 or if patient refuses opiate (if ordered), pain 4-6 or if patient refuses opiate (if ordered), pain 7-10, Starting on Dora 12/16/24 at 1915 hydrOXYzine (ATARAX) tablet 25 mg 25 mg, Oral, 3 times daily PRN, anxiety, Starting on Dora 12/16/24 at 1916 OLANZapine (ZYPREXA) tablet 2.5 mg 2.5 mg, Oral, Every 6 hours PRN, restlessness / irritability, Psychosis (hallucinations, delusions, or disorganized thinking/speech), anxiety, insomnia, Starting on Dora 12/16/24 at 1916 documented in this encounter Additional Health Concerns Infection Onset Date Last Indicated Resolved Time Covid Possible 12/17/2024 12/17/2024 12/17/2024 12 :11 PM EDT documented as of this encounter Care Teams Sap Senior Developer Relationship Specialty Start Date End Date Emory Pratt [address] [place] [id number] PCP - General Nurse Practitioner 12/16/24 documented as of this encounter
--- OUTSIDE RECORDS SUMMARY | 2024-12-17 18:08 | XMS_ITS | Encounter Summary ---
Author Organization [facility] r Address [address] [place] [address] Phone Care Team Providers Care Infectious Disease Technician Name Role Phone Emory Pratt Unavailable [phone] Mark Sethi MD Unavailable Unavailable Kathleen Bella PA-C Unavailable Irene Ardon Unavailable Emory Pratt Primary Care Provider Chiquita Patterson NP Unavailable Reason for Visit * Reason Onset Date Comments Call Back 12/13/2024 Encounter Details Date Type Department Care Team (Late st Contact Info) Description 12/13/[address] [address] Chiquita Patterson, [place] [address] Call Back Social History Tobacco Use Types Packs/Day Years Used Date Smoking Tobacco: Never Smokeless Tobacco: Never Comments:Smoking History:[facility] er smoker Quit smoking: never smoker Alcohol Use Standard Drinks/Week Comments No 0 (1 standard drink = 0.6 oz pur e alcohol) Housing Answer Date Recorded What is your living situation today? I have a [facility] place to live 11/07/2024 Medications Answer Date Recorded Do you have trouble paying for prescriptions? No 11/07/2024 Utilities Answer Date Recorded Do you have trouble paying f or utilites (heat, electricity, internet, or phone bill)? No 11/07/2024 Caregiving [place] Answer Date Recorded Taking care of a child, elder, or disabled perso n No 11/07/2024 Employment Answer Date Recorded Looking for a job, changing jobs, or getting job training No 11/07/2024 Education Answer Date Recorded Getting more education or he lp with school (early child education under 5 years old, high school diploma or GED, college level education) Yes 11/07/2024 Food Answer Date Recorded Within the past 12 months, w ere you worried whether your food would run out before you got money to buy more? Sometimes true 11/07/2024 Within the past 12 months, d id the food you bought just didn't last and you didn't have money to get more? Patient declined to answer 11/07/2024 Transportation Answer Date Recorded Do you have trouble getting transportation to medical appointments? No 11/07/2024 Social Support Answer Date Recorded Getting more education or he lp with school (early child education under 5 years old, high school diploma or GED, college level education) Yes 11/07/2024 Immigration Answer Date Recorded Accessing resources to address immigration needs Yes 11/07/2024 Finance Answer Date Recorded Managing or growing your mon ey (open a bank account, file taxes, save money, improve credit, buy a house)? No 11/07/2024 Technology Answer Date Recorded Using a computer or phone to manage your health (use [employer], see medical records, make appointments, get refills, message care team) No 11/07/2024 EOV Answer Date Recorded Many patients we see here ar e being hurt, controlled or threatened by someone they have a relationship with. Are you in a relationship where someone is hurting, controlling or scaring you? No 06/10/2024 Sex and Gender Information Value Date Recorded Sex Assigned at Male 10/08/2022 10:05 AM EDT Legal Sex Male 10:52 PM EDT Gender Identity Male 2022 7:14 AM EDT Sexual Orientation Straight 09/18/2022 10 :18 PM EDT documented as of this encounter Miscellaneous Notes * Telephone Encounter - Nikolas Lim - 12/13/2024 1:24 PM EDT Pt called and asking for sooner appt with her provider however there's no available sooner than he already has. He is not feeling well he said. Please send him a message through Wrike. documented in this encounter Plan of Treatment Upcoming Encounters Date Type Department Care Team (Late st Contact Info) Description 01/01/2025 9:40 AM EDT Clinical Support [facility] [address] [place] [phone] 01/12/2025 5:00 PM EDT Office Visit [facility] [address] [place] [phone] Chiquita Patterson, BELINDA [address] [facility] [place] [address] documented as of this encounter Visit Diagnoses Not on filedocumented in this encounter Care Teams Infectious Disease Technician Relationship Specialty Start Date End Date Emory Pratt FNP PCP - Insurance 10/18/16 Emory Pratt FNP PCP - General 07/11/15 Mark Sethi MD Gastroenterology 06/10/19 Kathleen Bella PA-C Gastroenterology 05/02/20 [place] [address] Gastroenterology 01/04/22 Chiquita Patterson NP [address] [place] [address] Nurse Practitioner Psychiatry 09/23/24 documented as of this encounter
--- OUTSIDE RECORDS SUMMARY | 2024-12-17 18:08 | XMS_ITS | Encounter Summary ---
Author Organization [facility] r Address [address] [place] [address] Phone Care Team Providers Care Ball Thread Machine Tender Name Role Phone Emory Pratt Unavailable Mark Sethi MD Unavailable Unavailable Kathleen Bella PA-C Unavailable [phone] Irene Ardon Unavailable Emory Pratt Primary Care Provider Chiquita Patterson NP Unavailable Encounter Details Date Type Department Care Team (Late st Contact Info) Description 12/13/2024 Telephone [facility] [address] [place] [phone] Emory Pratt FNP [address] [place] [address] Social History Tobacco Use Types Packs/Day Years Used Date Smoking Tobacco: Never Smokeless Tobacco: Never Comments:Smoking History:[facility] er smoker Quit smoking: never smoker Alcohol Use Standard Drinks/Week Comments No 0 (1 standard drink = 0.6 oz pur e alcohol) Housing Answer Date Recorded What is your living situation today? I have a [facility] place to live 11/07/2024 Medications Answer Date Recorded Do you have trouble paying for prescriptions? No 11/07/2024 Utilities Answer Date Recorded Do you have trouble paying f or utilites (heat, electricity, internet, or phone bill)? No 11/07/2024 Caregiving [place] Answer Date Recorded Taking care of a [...] or phone to manage your health (use [employer], see medical records, make appointments, get refills, [...] PM EDT documented as of this encounter Plan of Treatment Upcoming Encounters Date Type Department Care Team (Late st Contact Info) Description 01/01/2025 9:40 AM EDT Clinical Support [facility] [address] [place] [phone] 01/12/2025 5:00 PM EDT Office Visit [facility] [address] [place] [address] [place] [address] documented as of this encounter Visit Diagnoses Not on filedocumented in this encounter Care Teams Ball Thread Machine Tender Relationship Specialty Start Date End Date Emory Pratt FNP PCP - Insurance 10/18/16 Emory Pratt FNP PCP - General 07/11/15 Mark Sethi MD Gastroenterology 06/10/19 Kathleen Bella PA-C Gastroenterology 05/02/20 [place] [address] Gastroenterology 01/04/22 Chiquita Patterson NP [address] [place] [address] Nurse Practitioner Psychiatry 09/23/24 documented as of this encounter
--- OUTSIDE RECORDS SUMMARY | 2024-12-17 18:08 | XMS_ITS | Encounter Summary ---
Author Organization [facility] r Address [address] [place] [address] Phone Care Team Providers Care Salt Plant Operator Name Role Phone Emory Pratt Unavailable Mark Sethi MD Unavailable Unavailable Kathleen Bella PA-C Unavailable [phone] Irene Ardon Unavailable Emory Pratt Primary Care Provider Chiquita Patterson NP Unavailable Encounter Details Date Type Department Care Team (Late st Contact Info) Description 12/13/2024 Orders Only [facility] [address] [place] [address], [place] [phone] Chiquita Patterson, [place] [address] Social History Tobacco Use Types Packs/Day Years Used Date Smoking Tobacco: Never Smokeless Tobacco: Never Comments:Smoking History:[facility] er smoker Quit smoking: never smoker Alcohol Use Standard Drinks/Week Comments No 0 (1 standard drink = 0.6 oz pur e alcohol) Housing Answer Date Recorded What is your living situation today? I have a [facility] place to live 11/07/2024 Medications Answer Date Recorded Do you have trouble paying for prescriptions? No 11/07/2024 Utilities Answer Date Recorded Do you have trouble paying f or utilites (heat, electricity, internet, or phone bill)? No 11/07/2024 Caregiving [place] Answer Date Recorded Taking care of a [...] or phone to manage your health (use behaviewt, see medical records, make appointments, get refills, [...] Description 01/01/2025 9:40 AM EDT Clinical Support [facility] [address] [place] [address] 01/12/2025 5:00 PM EDT Office Visit [facility] [address] [place] [address] [place] [address] documented as of this encounter Visit Diagnoses Not on filedocumented in this encounter Care Teams Salt Plant Operator Relationship Specialty Start Date End Date Emory Pratt FNP PCP - Insurance 10/18/16 Emory Pratt FNP PCP - General 07/11/15 Mark Sethi MD Gastroenterology 06/10/19 Kathleen Bella PA-C Gastroenterology 05/02/20 [place] [address] Gastroenterology 01/04/22 Chiquita Patterson NP [address] [place] [address] Nurse Practitioner Psychiatry 09/23/24 documented as of this encounter
--- OUTSIDE RECORDS SUMMARY | 2024-12-17 18:09 | XMS_ITS | Encounter Summary ---
[facility] Organization [facility] Address [address] [place] [address] Phone Care Team Providers Care Locomotive Firer Name Role Phone Emory Pratt Primary Care Provider Encounter Details Date Type Department Care Team (Latest Contact Info) Description 12/16/2024 Travel Social History Tobacco Use Types Packs/Day Years Used Date Smoking Tobacco: Former Cigarettes Smokeless Tobacco: Never Sex and Gender Information Value Date Recorded Sex Assigned at Not on file Legal Sex Male 1:10 PM EDT Gender Identity Not on file Sexual Orientation Not on file documented as of this encounter Plan of Treatment Not on file documented as of this encounter Visit Diagnoses Not on filedocumented in this encounter Care Teams Locomotive Firer Relationship Specialty Start Date End Date Emory Pratt [address] [place] [address] PCP - General Nurse Practitioner 12/16/24 documented as of this encounter
--- OUTSIDE RECORDS SUMMARY | 2024-12-17 18:09 | XMS_ITS | Encounter Summary ---
Author Organization [facility] r Address [address] [place] [address] Phone Care Team Providers Care Other Sports Coach Or Instructor Name Role Phone Emory Pratt Unavailable Mark Sethi MD Unavailable Unavailable Kathleen Bella PA-C Unavailable [phone] Irene Ardon Unavailable Emory Pratt Primary Care Provider Chiquita Patterson NP Unavailable Reason for Visit * Reason Onset Date Comments Medication Question 12/11/2023 Follow up wi th patient Encounter Details Date Type Department Care Team (Late st Contact Info) Description 12/11/2023 Telephone [facility] [address] [place] [address] Emory Pratt FNP [address] [place] [address] Medication Question (Follow up with patient ) Social History Tobacco Use Types Packs/Day Years Used Date Smoking Tobacco: Never Smokeless Tobacco: Never Comments:Smoking History:[place] Quit smoking: never smoker Alcohol Use Standard Drinks/Week Comments No 0 (1 standard drink = 0.6 oz pur e alcohol) Housing Answer Date Recorded What is your living situation today? I have a [facility] place to live 03/07/2023 Medications Answer Date Recorded Do you have trouble paying for prescriptions? No 03/07/2023 Utilities Answer Date Recorded Do you have trouble paying f or utilites (heat, electricity, internet, or phone bill)? No 03/07/2023 Caregiving [place] Answer Date Recorded Taking care of a child, elder, or disabled perso n No 03/07/2023 Employment Answer Date Recorded Looking for a job, changing jobs, or getting job training No 03/07/2023 Education Answer Date Recorded Getting more education or he lp with school (early child education under 5 years old, high school diploma or GED, college level education) Yes 03/07/2023 Food Answer Date Recorded Within the past 12 months, w ere you worried whether your food would run out before you got money to buy more? Never true 1 05/07/2022 Within the past 12 months, d id the food you bought just didn't last and you didn't have money to get more? Never true Transportation Answer Date Recorded Do you have trouble getting transportation to medical appointments? No 03/07/2023 Social Support Answer Date Recorded Getting more education or he lp with school (early child education under 5 years old, high school diploma or GED, college level education) Yes 03/07/2023 Immigration Answer Date Recorded Accessing resources to address immigration needs No 03/07/2023 Finance Answer Date Recorded Managing or growing your mon ey (open a bank account, file taxes, save money, improve credit, buy a house)? No 03/07/2023 Technology Answer Date Recorded Using a computer or phone to manage your health (use MyChart, see medical records, make appointments, get refills, message care team) No 03/07/2023 Sex and Gender Information Value Date Recorded Sex Assigned at Male 10/08/2022 10:05 AM EDT Legal Sex Male 10:52 PM EDT Gender Identity Male 2022 7:14 AM EDT Sexual Orientation Straight 09/18/2022 10 :18 PM EDT documented as of this encounter Miscellaneous Notes * Telephone Encounter - Isha Quinones - 12/11/2023 4:19 PM EDT Patient Reported Reason for Call Patient presents with Medication Question Follow up with patient documented in this encounter Plan of Treatment Upcoming Encounters Date Type Department Care Team (Late st Contact Info) Description 01/01/2025 9:40 AM EDT Clinical Support [facility] [address] [place] [phone] 01/12/2025 5:00 PM EDT Office Visit [address] [phone] [place] [address] documented as of this encounter Visit Diagnoses Not on filedocumented in this encounter Additional Health Concerns Infection Onset Date Last Indicated Resolved Time COVID-19 Rule Out 04/26/2024 04/26/2024 04/26/2024 10:24 AM EST documented as of this encounter Care Teams Other Sports Coach Or Instructor Relationship Specialty Start Date End Date Emory Pratt FNP PCP - Insurance 10/18/16 Emory Pratt FNP PCP - General 07/11/15 Mark Sethi MD Gastroenterology 06/10/19 Kathleen Bella PA-C Gastroenterology 05/02/20 [place] [address] Gastroenterology 01/04/22 Chiquita Patterson NP [address] [place] [address] Nurse Practitioner Psychiatry 09/23/24 documented as of this encounter
--- OUTSIDE RECORDS SUMMARY | 2024-12-17 18:09 | XMS_ITS | Encounter Summary ---
Author Organization [facility] r Address [address] [place] [address] Phone Care Team Providers Care Woodworking Shop Laborer Name Role Phone Emory Pratt Unavailable Mark Sethi MD Unavailable Unavailable Kathleen Bella PA-C Unavailable [phone] Irene Ardon Unavailable Emory Pratt Primary Care Provider Chiquita Patterson NP Unavailable [phone] Reason for Visit * Reason Onset Date Comments Medication Refill 07/13/2024 Encounter Details Date Type Department Care Team (Late st Contact Info) Description 07/13/2024 Refill [facility] [address] [place] [address] Emory Pratt FNP [address] [place] [address] Social History Tobacco Use Types Packs/Day Years Used Date Smoking Tobacco: Never Smokeless Tobacco: Never Comments:Smoking History:[place] sm[place] Quit smoking: never smoker Alcohol Use Standard Drinks/Week Comments No 0 (1 standard drink = 0.6 oz pur e alcohol) Housing Answer Date Recorded What is your living situation today? I have a [facility] place to live 05/25/2024 Medications Answer Date Recorded Do you have trouble paying for prescriptions? Ye s 04/19/2024 Utilities Answer Date Recorded Do you have trouble paying f or utilites (heat, electricity, internet, or phone bill)? No 04/19/2024 Caregiving [place] Answer Date Recorded Taking care of a child, elder, or disabled perso n No 04/19/2024 Employment Answer Date Recorded Looking for a job, changing jobs, or getting job training Yes 04/19/2024 Education Answer Date Recorded Getting more education or he lp with school (early child education under 5 years old, high school diploma or GED, college level education) Yes 04/19/2024 Food Answer Date Recorded Within the past 12 months, w ere you worried whether your food would run out before you got money to buy more? Sometimes true 1 Within the past 12 months, d id the food you bought just didn't last and you didn't have money to get more? Sometimes true Transportation Answer Date Recorded Do you have trouble getting transportation to medical appointments? Yes 04/19/2024 Social Support Answer Date Recorded Getting more education or he lp with school (early child education under 5 years old, high school diploma or GED, college level education) Yes 04/19/2024 Immigration Answer Date Recorded Accessing resources to [...] get refills, message care team) No 03/07/2023 EOV Answer Date Recorded Many patients we [...] Description 01/01/2025 9:40 AM EDT Clinical Support [facility] [address] [place] [address] 01/12/2025 5:00 PM EDT Office Visit [facility] [address] [place] [address] [place] [address] documented as of this encounter Visit Diagnoses Not on filedocumented in this encounter Care Teams Woodworking Shop Laborer Relationship Specialty Start Date End Date Emory Pratt FNP PCP - Insurance 10/18/16 Emory Pratt FNP PCP - General 07/11/15 Mark Sethi MD Gastroenterology 06/10/19 Kathleen Bella PA-C Gastroenterology 05/02/20 [place] [address] Gastroenterology 01/04/22 Chiquita Patterson NP [address] [place] [address] Nurse Practitioner Psychiatry 09/23/24 documented as of this encounter
--- OUTSIDE RECORDS SUMMARY | 2024-12-17 18:09 | XMS_ITS | Encounter Summary ---
Author Organization [facility] r Address [address] [place] [address] Phone Care Team Providers Care Second Helper Name Role Phone Emory PrattP Unavailable Mark Sethi MD Unavailable Unavailable Kathleen Bella PA-C Unavailable [phone] Irene Ardon Unavailable Emory Pratt Primary Care Provider Chiquita Patterson NP Unavailable Reason for Visit * Reason Onset Date Comments Insurance Issues 05/17/2024 05/24/2024No [place] [facility] Appt Encounter Details Date Type Department Care Team (Late st Contact Info) Description 05/17/2024 Telephone [facility] [address] [place] [address] Emory Pratt FNP [address] [place] [address] Insurance Issues (05/24/2024/No Cov/ Appt/) Social History Tobacco Use Types Packs/Day Years Used Date Smoking Tobacco: Never Smokeless Tobacco: Never Comments:Smoking History:[place] sm[place] Quit smoking: never smoker Alcohol Use Standard Drinks/Week Comments No 0 (1 standard drink = 0.6 oz pur e alcohol) Housing Answer Date Recorded What is your living situation today? I have a [facility] place to live 04/26/2024 Medications Answer Date Recorded Do you have trouble paying for prescriptions? Ye s 04/19/2024 Utilities Answer Date Recorded Do you have trouble paying f or utilites (heat, electricity, internet, or phone bill)? No 04/19/2024 Caregiving [place] Answer Date Recorded Taking care of a [...] or phone to manage your health (use [employer], see medical records, make appointments, get refills, message care team) No 03/07/2023 Sex and Gender Information Value Date Recorded Sex Assigned at Male 10/08/2022 10:05 AM EDT Legal Sex Male 10:52 PM EDT Gender Identity Male 2022 7:14 AM EDT Sexual Orientation Straight 09/18/2022 10 :18 PM EDT documented as of this encounter Miscellaneous Notes * Telephone Encounter - Barbara Castle - 05/17/2024 3:41 PM EST 05/17/2024 05/24/2024 No BH Cov BH Appt Left VM documented in this encounter Plan of Treatment Upcoming Encounters Date Type Department Care Team (Late st Contact Info) Description 01/01/2025 9:40 AM EDT Clinical Support [facility] [address] [place] [phone] 01/12/2025 5:00 PM EDT Office Visit [facility] [address] [place] [phone] [place] [address] documented as of this encounter Visit Diagnoses Not on filedocumented in this encounter Care Teams Second Helper Relationship Specialty Start Date End Date Emory Pratt FNP PCP - Insurance 10/18/16 Emory Pratt FNP PCP - General 07/11/15 Mark Sethi MD Gastroenterology 06/10/19 Kathleen Bella PA-C Gastroenterology 05/02/20 [place] [address] Gastroenterology 01/04/22 Chiquita Patterson NP [address] [place] [address] Nurse Practitioner Psychiatry 09/23/24 documented as of this encounter
--- OUTSIDE RECORDS SUMMARY | 2024-12-17 18:09 | XMS_ITS | Encounter Summary ---
Author Organization [facility] r Address [address] [place] [address] Phone Care Team Providers Care Tester/Lift Trucker Name Role Phone Emory Pratt Unavailable Mark Sethi MD Unavailable Unavailable Kathleen Bella PA-C Unavailable [phone] Irene Ardon Unavailable Emory Pratt Primary Care Provider [phone] Chiquita Patterson NP Unavailable Reason for Visit * Reason Onset Date Comments Appointment 11/08/2024 Encounter Details Date Type Department Care Team (Late st Contact Info) Description 11/08/[address] [address] Chiquita Patterson, [place] [address] Appointment Social History Tobacco Use Types Packs/Day Years Used Date Smoking Tobacco: Never Smokeless Tobacco: Never Comments:Smoking History:[facility] er smoker Quit smoking: never smoker Alcohol Use Standard Drinks/Week Comments No 0 (1 standard drink = 0.6 oz pur e alcohol) Housing Answer Date Recorded What is your living situation today? I have a [facility] place to live 11/07/2024 Medications Answer Date Recorded Do you have trouble paying for prescriptions? No 11/07/2024 Utilities Answer Date Recorded Do you have trouble paying f or utilites (heat, electricity, internet, or phone bill)? No 11/07/2024 Caregiving [place] Answer Date Recorded Taking care of a [...] or phone to manage your health (use [employer], see medical records, make appointments, get refills, [...] encounter Miscellaneous Notes * Telephone Encounter - Celia Serranogary - 11/08/2024 1:50 PM EDT Patient is calling to reschedule his appointment on 11/10/2024 at 1:30 PM. He is requesting If he can be seen same day but earlier time instead of 1:30 PM. If there's an availability, please reach out at [phone] documented in this encounter Plan of Treatment Upcoming Encounters Date Type Department Care Team (Late st Contact Info) Description 01/01/2025 9:40 AM EDT Clinical Support [facility] [address] [place] [phone] 01/12/2025 5:00 PM EDT Office Visit [facility] [address] [place] [phone] Chiquita Patterson, HIGH SCHOOL HVAC R INSTRUCTOR [address] [facility] [place] [address] documented as of this encounter Visit Diagnoses Not on filedocumented in this encounter Care Teams Tester/Lift Trucker Relationship Specialty Start Date End Date Emory Pratt FNP PCP - Insurance 10/18/16 Emory Pratt FNP PCP - General 07/11/15 Mark Sethi MD Gastroenterology 06/10/19 Kathleen Bella PA-C Gastroenterology 05/02/20 [place] [address] Gastroenterology 01/04/22 Chiquita Patterson NP [address] [place] [address] Nurse Practitioner Psychiatry 09/23/24 documented as of this encounter
--- OUTSIDE RECORDS SUMMARY | 2024-12-17 18:09 | XMS_ITS | Clinical Summary ---
Author Organization [facility] ystem Address [address] [place] [address] Phone Care Team Providers Care Manager Document Name Role Phone Emory Pratt Primary Care Provider [phone] Allergies No known active allergies Medications propranolol LA (INDERAL LA) 60 MG 24 hr capsule Take 60 mg by mouth daily 11/11/19 25 025 Active pantoprazole (PROTONIX) 40 MG EC tablet Take 40 mg by mouth daily 06/05/19 23 Active Paliperidone Palmitate ER 156 MG/ML suspension prefilled syringe injection Inject 156 mg intramuscularly 08/04/19 25 Active OLANZapine (ZYPREXA) 5 MG tablet Take 5 mg by mouth nightly 11/11/19 25 Active melatonin 3 MG tablet Take 6 mg by mouth 11/11/19 25 Active Active Problems Problem Noted Date Diagnosed Date Schizoaffective disorder, bipolar type 5 Encounters Date Type Department Care Team Description 12/16/2024 1:22 PM EDT - 12/17/2024 3:13 PM EDT Hospital Encounter [facility] - Emergency Department [address] [place] [address] Mary Monte MD Chang, Howard Hong-Juei, MD Corrigan, Daniel, MD McDonough, Kelly A., DO McLaughlin, Kenneth David, MD Psychosis, unspecified psychosis type (CMS/HCC) (Primary Dx) Discharge Disposition: Psychiatric Facility 12/16/2024 Travel from Last 3 Months Social History Tobacco Use Types Packs/Day Years Used Date Smoking Tobacco: Former Cigarettes Smokeless Tobacco: Never Tobacco Cessation:Counseling Given: Not Answered Sex and Gender Information Value Date Recorded Sex Assigned at Not on file Legal Sex Male 1:10 PM EDT Gender Identity Not on file Sexual Orientation Not on file Last Filed Vital Signs Vital Sign Reading Time Taken Comments Blood Pressure 108/69 12/17/2024 2:08 PM EDT Pulse 68 12/17/2024 2:08 PM EDT Temperature 36.8 C (98.2 F) 12/17/2024 2:08 PM EDT Respiratory Rate 16 12/17/2024 2:08 PM EDT Oxygen Saturation 99% 12/17/2024 2:08 PM EDT Inhaled Oxygen Concentration - - Weight 87.5 kg (192 lb 14.4 oz) 12/16/2024 1:42 PM EDT Height - - Body Mass Index - - Plan of Treatment Health Maintenance Due Date Last Done Comments [facility] Topic HIV Screening 1986 [facility] Hepatitis B Screening 01/08/2004 [facility] Topic Tdap Vaccine (1 - Tdap) 2005 [facility] Topic Influenza (Flu) Seasonal (#1) 2024 [facility] Topic Lipid Profile 5 years 11/10/2029 11/10/2024, 10/23/2021 [facility] Topic Shingrix (1 of 2) 01/08/2036 [facility] Topic Hepatitis C Screening Completed 10/18/2016 [facility] Topic HIB Vaccines Aged Out No longer eligible based on patient's age to complete this topic [facility] Topic HPV Vaccines Aged Out No longer eligible based on patient's age to complete this topic Procedures Procedure Name Priority Date/Time Associated Diagnosis Comments COVID-19 ([facility]) Routine 12/17/2024 8:36 AM EDT URINE DRUGS OF ABUSE SCREEN STAT 12/16/2024 8:00 PM EDT SALICYLATE LEVEL STAT 12/16/2024 3:00 PM EDT ETHANOL STAT 12/16/2024 3:00 PM EDT COMPREHENSIVE METABOLIC PANEL STAT 12/16/2024 3:00 PM EDT CBC WITH AUTO DIFFERENTIAL STAT 12/16/2024 3:00 PM EDT ACETAMINOPHEN LEVEL STAT 12/16/2024 3 :00 PM EDT from Last 3 Months Results * COVID-19 ([facility]) (12/17/2024 8:36 AM EDT) Pathologist [facility] COVID-19 ([facility]) PCR Negative Negative LTT PANTHER ANALYZER-DP H 12/17/2024 12:11 PM EDT [facility] Swab (Nasopharynx) Non-blood Collection / Unknown 12/17/2024 8:36 AM EDT 12/17/2024 8:42 AM EDT Kylee Damon NP LAB MICROBIOLOGY - GENERA L ORDERABLES Final Result [facility] [address] [place] [address], [place] [phone] * Urine drugs of abuse screen (12/16/2024 8:00 PM EDT) [facility] Amphetamines, Urine Screen None Detected None Detected 12/16/2024 9:21 PM EDT [facility] Barbiturates, Urine Screen None Detected None Detected 12/16/2024 9:21 PM EDT [facility] Benzodiazepines, Urine Screen None Detected None Detected 12/16/2024 9:21 PM EDT [facility] Cocaine, Urine Screen None Detected None Detected 12/16/2024 9:21 PM EDT [facility] Opiates, Urine Screen None Detected None Detected 12/16/2024 9:21 PM EDT [facility] Cannabinoids (THC), Urine Screen None Detected None Detected 12/16/2024 9:21 PM EDT [facility] Tricyclic Antidepressants, Urine Screen None Detected None Detected 12/16/2024 9:21 PM EDT [facility] Fentanyl, Urine Screen None Detected None Detected 12/16/2024 9:21 PM EDT [facility] Methadone, Urine Screen None Detected None Detected 12/16/2024 9:21 PM EDT [facility] Oxycodone, Urine Screen None Detected None Detected 12/16/2024 9:21 PM EDT [facility] Buprenorphine, Urine Screen None Detected None Detected 12/16/2024 9:21 PM T [facility] Phencyclidine, Urine Screen None Detected None Detected 12/16/2024 9:21 PM [facility] Urine Urine specimen obtained by clean catch procedure / Unknown Non-blood Collection / Unknown 12/16/2024 8:00 PM EDT 12/16/2024 8:52 PM EDT [facility] - 12/16/2024 9:21 PM EDT [...] ng/ml Phencyclidine 25 ng/ml us Janny Walden [facility] URINE ORDERABLES F inal Result [facility] [address] [place] [address], [place] [phone] * (ABNORMAL) CBC with auto differential (12/16/2024 3:00 PM EDT) WBC 5.5 4.5 - 10.8 10*3 l 12/16/2024 3:24 PM EDT [facility] RBC 5.50 4.70 - 6.10 10*6 l 12/16/2024 3:24 PM EDT [facility] Hemoglobin 14.3 14.0 - 18.0 g/dL 12/16/2024 3:24 PM EDT [facility] Hematocrit 44.5 42.0 - 52.0 % 12/16/2024 3:24 PM EDT [facility] MCV 81 80 - 95 fL 12/16/2024 3:24 PM EDT [facility] MCH 26.0 25.4 - 39.0 pg 12/16/2024 3:24 PM EDT [facility] MCHC 32.1 31.0 - 37.0 g/dL 12/16/2024 3:24 PM EDT [facility] RDW 12.7 11.5 - 14.5 % 12/16/2024 3:24 PM EDT [facility] Platelets 212 150 - 450 10*3 l 12/16/2024 3:24 PM EDT [facility] MPV 11.9(H) 7.0 - 11.0 fL 12/16/2024 3:24 PM EDT [facility] Neutrophils % 54.5 40.0 - 80.0 % 12/16/2024 3:24 PM EDT [facility] Lymphocytes % 31.7 20.0 - 40.0 % 12/16/2024 3:24 PM EDT [facility] Monocytes % 11.4(H) 2.0 - 10.0 % 12/16/2024 3:24 PM EDT [facility] Eosinophils % 1.8 1.0 - 6.0 % 12/16/2024 3:24 PM EDT [facility] Basophils % 0.4 0.0 - 1.0 % 12/16/2024 3:24 PM EDT [facility] Immature Granulocyte % 0.2 0.0 - 0.9 % 12/16/2024 3:24 PM EDT [facility] Neutrophils Absolute 3.01 2.00 - 7.00 K/mm3 12/16/2024 3:24 PM EDT [facility] Absolute Immature Granulocyte 0.01 0.00 - 0.09 K/mm3 12/16/2024 3:24 PM EDT [facility] Lymphocytes Absolute 1.75 1.00 - 3.00 K/mm3 12/16/2024 3:24 PM EDT [facility] Monocytes Absolute 0.63 0.20 - 1.00 K/mm3 12/16/2024 3:24 PM EDT [facility] Eosinophils Absolute 0.10 0.00 - 0.50 K/mm3 12/16/2024 3:24 PM EDT [facility] Basophils Absolute 0.02 0.00 - 0.10 K/mm3 12/16/2024 3:24 PM EDT [facility] Blood Venous blood / Unknown Venipuncture / Unknown 12/16/2024 3:00 PM EDT 12/16/2024 3:11 PM EDT us Mary Monte MD LAB BLOOD ORDERABLES Final R esult [facility] [address] [place] [address], * Ethanol (12/16/2024 3:00 PM EDT) Ethanol <=10 0 - 10 mg/dL 12/16/2024 3:38 PM EDT [facility] Comment:NONE DETECTED: Resul t <10 should be interpreted as NONE DETECTED. Blood Venous blood / Unknown Venipuncture / Unknown 12/16/2024 3:00 PM EDT 12/16/2024 3:09 PM EDT us Mary Monte MD LAB BLOOD ORDERABLES Final R esult [facility] [address] [place] [address], [place] [phone] * Acetaminophen level (12/16/2024 3:00 PM EDT) Acetaminophen Level <5.1 <15.0 ug/mL 12/16/2024 3:38 PM EDT [facility] Blood Venous blood / Unknown Venipuncture / Unknown 12/16/2024 3:00 PM EDT 12/16/2024 3:09 PM EDT us Mary Monte MD LAB BLOOD ORDERABLES Final R esult [facility] [address] [place] [address], [place] [phone] * Salicylate level (12/16/2024 3:00 PM EDT) Salicylate Level <=3.0 3.0 - 30.0 mg/dL 12/16/2024 3:38 PM EDT [facility] Blood Venous blood / Unknown Venipuncture / Unknown 12/16/2024 3:00 PM EDT 12/16/2024 3:09 PM EDT us Mary Monte MD LAB BLOOD ORDERABLES Final R esult [facility] [address] [place] [address], [place] [phone] * (ABNORMAL) Comprehensive metabolic panel (12/16/2024 3:00 PM EDT) Glucose 84 70 - 100 mg/dL 12/16/2024 3:42 PM EDT [facility] BUN 10 6 - 19 mg/dL 12/16/2024 3:42 PM EDT [facility] Creatinine 1.0 0.4 - 1.2 mg/dL 12/16/2024 3:42 PM EDT [facility] eGFR >60.00 >60.00 mL/min/1.7 3m*2 12/16/2024 3:42 PM EDT [facility] Sodium 141 135 - 145 mmol/L 12/16/2024 3:42 PM EDT [facility] Potassium 4.1 3.4 - 5.1 mmol/L 12/16/2024 3:42 PM EDT [facility] Chloride 105 98 - 109 mmol/L 12/16/2024 3:42 PM EDT [facility] CO2 20(L) 22 - 29 mmol/L 12/16/2024 3:42 PM EDT [facility] Anion Gap 16 6 - 16 mmol/L 12/16/2024 3:42 PM EDT [facility] Calcium 9.7 8.5 - 10.5 mg/dL 12/16/2024 3:42 PM EDT [facility] Total Bilirubin 0.9 0.2 - 1.2 mg/dL 12/16/2024 3:42 PM EDT [facility] Alkaline Phosphatase 87 40 - 129 U/L 12/16/2024 3:42 PM EDT [facility] ALT (SGPT) 14 0 - 40 U/L 12/16/2024 3:42 PM EDT [facility] AST 17 0 - 37 U/L 12/16/2024 3:42 PM EDT [facility] Total Protein 7.7 6.0 - 8.5 g/dL 12/16/2024 3:42 PM EDT [facility] Albumin 4.3 3.3 - 5.2 g/dL 12/16/2024 3:42 PM EDT [facility] Blood Venous blood / Unknown Venipuncture / Unknown 12/16/2024 3:00 PM EDT 12/16/2024 3:09 PM EDT Mary Monte MD LAB BLOOD ORDERABLES Final R esult [facility] [address] [place] [address], [place] [phone] from Last 3 Months Insurance [facility] S[employer] NET [employer] [facility] DIRECT Care Teams Manager Document Relationship Specialty Start Date End Date Emory Pratt [address] [place] [id number] PCP - General Nurse Practitioner 12/16/24
--- OUTSIDE RECORDS SUMMARY | 2024-12-17 18:09 | XMS_ITS | Encounter Summary ---
Author Organization [facility] r Address [address] [place] [address] Phone Care Team Providers Care Perinatal Breastfeeding Assistant Name Role Phone Emory Pratt Unavailable [phone] Mark Sethi MD Unavailable Unavailable Kathleen Bella PA-C Unavailable [phone] Irene Ardon Unavailable [phone] Emory Pratt Primary Care Provider Chiquita Patterson NP Unavailable Reason for Visit * Reason Onset Date Comments Appointment 04/06/2024 Encounter Details Date Type Department Care Team (Late st Contact Info) Description 04/06/[address] [address] Yola [place], [place] [address] Appointment Social History Tobacco Use Types Packs/Day Years Used Date Smoking Tobacco: Never Smokeless Tobacco: Never Comments:Smoking History:[place] smoker Quit smoking: never smoker Alcohol Use Standard Drinks/Week Comments No 0 (1 standard drink = 0.6 oz pur e alcohol) Housing Answer Date Recorded What is your living situation today? I have a [facility] place to live 03/07/2023 Medications Answer Date Recorded Do you have trouble paying for prescriptions? No 03/07/2023 Utilities Answer Date Recorded Do you have trouble paying f or utilites (heat, electricity, internet, or phone bill)? No 03/07/2023 Caregiving [place] Answer Date Recorded Taking care of a [...] * Telephone Encounter - Nikolas Lim - 04/06/2024 12:25 PM EST Pt called to reschedule his cancelled telemedicine appt yesterday at 11:30 04/[address] Mock however there's no open slot. Please call him at [phone] documented in this encounter Plan of Treatment Upcoming Encounters Date Type Department Care Team (Late st Contact Info) Description 01/01/2025 9:40 AM EDT Clinical Support [facility] [address] [place] [phone] 01/12/2025 5:00 PM EDT Office Visit [facility] [address] [place] [phone] Chiquita Patterson, [place] [address] documented as of this encounter Visit Diagnoses Not on filedocumented in this encounter Additional Health Concerns Infection Onset Date Last Indicated Resolved Time COVID-19 Rule Out 04/26/2024 04/26/2024 04/26/2024 10:24 AM EST documented as of this encounter Care Teams Perinatal Breastfeeding Assistant Relationship Specialty Start Date End Date Emory Pratt FNP PCP - Insurance 10/18/16 Emory Pratt FNP PCP - General 07/11/15 Mark Sethi MD Gastroenterology 06/10/19 Kathleen Bella PA-C Gastroenterology 05/02/20 [place] [address] Gastroenterology 01/04/22 Chiquita Patterson NP [address] [place] [address] Nurse Practitioner Psychiatry 09/23/24 documented as of this encounter
--- OUTSIDE RECORDS SUMMARY | 2024-12-17 18:09 | XMS_ITS | Encounter Summary ---
Author Organization [facility] r Address [address] [place] [address] Phone Care Team Providers Care Metal Sander Name Role Phone Emory Pratt Unavailable [phone] Mark Sethi MD Unavailable Unavailable Kathleen Bella PA-C Unavailable [phone] Irene Ardon Unavailable Emory Pratt Primary Care Provider Chiquita Patterson NP Unavailable Reason for Visit * Reason Onset Date Comments Medication Refill 10/24/2023 Encounter Details Date Type Department Care Team (Late st Contact Info) Description 10/24/[address] [place] [address] Y[place], [place] [address] Social History Tobacco Use Types Packs/Day Years Used Date Smoking Tobacco: Never Smokeless Tobacco: Never Comments:Smoking History:[place] smoker Quit smoking: never smoker Alcohol Use Standard Drinks/Week Comments No 0 (1 standard drink = 0.6 oz pur e alcohol) Housing Answer Date Recorded What is your living situation today? I have a [facility] place to live 03/07/2023 Medications Answer Date Recorded Do you have trouble paying for prescriptions? No 03/07/2023 Utilities Answer Date Recorded Do you have trouble paying f or utilites (heat, electricity, internet, or phone bill)? No 03/07/2023 Caregiving [place] Answer Date Recorded Taking care of a [...] Description 01/01/2025 9:40 AM EDT Clinical Support [facility] [address] [place] [phone] 01/12/2025 5:00 PM EDT Office Visit [facility] [address] [place] [address] [place] [address] documented as of this encounter Visit Diagnoses Not on filedocumented in this encounter Additional Health Concerns Infection Onset Date Last Indicated Resolved Time COVID-19 Rule Out 04/26/2024 04/26/2024 04/26/2024 10:24 AM EST documented as of this encounter Care Teams Metal Sander Relationship Specialty Start Date End Date Emory Pratt FNP PCP - Insurance 10/18/16 Emory Pratt FNP PCP - General 07/11/15 Mark Sethi MD Gastroenterology 06/10/19 Kathleen Bella PA-C Gastroenterology 05/02/20 [place] [address] Gastroenterology 01/04/22 Chiquita Patterson NP [address] [place] [address] Nurse Practitioner Psychiatry 09/23/24 documented as of this encounter
--- OUTSIDE RECORDS SUMMARY | 2024-12-17 18:09 | XMS_ITS | Encounter Summary ---
Author Organization [facility] r Address [address] [place] [address] Phone Care Team Providers Care Adapted Physical Education Specialist Name Role Phone Emory Pratt Unavailable Mark Sethi MD Unavailable Unavailable Kathleen Bella PA-C Unavailable [phone] Irene Ardon Unavailable [phone] Emory Pratt Primary Care Provider Chiquita Patterson NP Unavailable Reason for Visit * Reason Onset Date Comments Vomiting 10/29/2021 Encounter Details Date Type Department Care Team (Late st Contact Info) Description 10/29/2021 Telephone [facility] [address] [facility] [address], [place] [address] Pcp-Confirmed, No Vomiting Social History Tobacco Use Types Packs/Day Years Used Date Smoking Tobacco: Never Smokeless Tobacco: Never Comments:Smoking History:[facility] er smoker Alcohol Use Standard Drinks/Week Comments No 0 (1 standard drink = 0.6 oz pur e alcohol) Sex and Gender Information Value Date Recorded Sex Assigned at Male 10/08/2022 10:05 AM EDT Legal Sex Male 10:52 PM EDT Gender Identity Male 2022 7:14 AM EDT Sexual Orientation Straight 09/18/2022 10 :18 PM EDT documented as of this encounter Miscellaneous Notes * Telephone Encounter - Aure Kiser RN - 10/29/2021 4:44 PM EDT Returned call and spoke to patient reports his vomiting episodes as dry heaves that occurs usually in the morning upon awakening, after drinking coffee, at night sometimes, when brushing his teeth and sometimes while at work. Patient denies any other symptoms, normal BM. Patient is currently takingPrilosec 2 0mg in the morning 30 minutes before breakfast. Instructed patient to avoid greasy and fatty foods and coffee sometimes, patient denies any alcohol consumption. Informed patient that I will send the message to the covering provider for Kathleen Bella, Patient verbalizes understanding and agrees to plan. * Telephone Encounter - Arianna Mora - 10/29/2021 3:47 PM EDT Patient Reported Reason for Call Patient presents with ??? Vomiting Fact Finding Questions How long have you been vomitin hours, Longer than 1 month Taking any new medications: Yes Are you vomiting blood: No Patient Advised to go to the nearest ED if symptoms worsen or if they feel they can't wait for a call back: Yes Pt calling from [phone] stating he is still vomiting since he last seen Kathleen Bella, Pt states if he brushes his teet he vomits, when he is out in public he vomits, If patient is full he feels like he has to vomit. PSR asked pt if he spoke to his pcp, pt stated she told him to call us for his vomiting issues. documented in this encounter Plan of Treatment Upcoming Encounters Date Type Department Care Team (Late st Contact Info) Description 01/01/2025 9:40 AM EDT Clinical Support [address] [place] [address] 01/12/2025 5:00 PM EDT Office Visit [facility] [address] [place] [address] Chiqu[place] [address] documented as of this encounter Visit Diagnoses Not on filedocumented in this encounter Additional Health Concerns Infection Onset Date Last Indicated Resolved Time COVID-19 Rule Out 04/26/2024 04/26/2024 04/26/2024 10:24 AM EST documented as of this encounter Care Teams Adapted Physical Education Specialist Relationship Specialty Start Date End Date Emory Pratt FNP PCP - Insurance 10/18/16 Emory Pratt FNP PCP - General 07/11/15 Mark Sethi MD Gastroenterology 06/10/19 Kathleen Bella PA-C Gastroenterology 05/02/20 [place] [address] Gastroenterology 01/04/22 Chiquita Patterson, BELINDA [address] [place] [address] Nurse Practitioner Psychiatry 09/23/24 documented as of this encounter
--- OUTSIDE RECORDS SUMMARY | 2024-12-17 18:09 | XMS_ITS | Encounter Summary ---
Author Organization [facility] r Address [address] [place] [address] Phone Care Team Providers Care Bookmaker'S Clerk Name Role Phone Emory Pratt Unavailable Mark Sethi MD Unavailable Unavailable Kathleen Bella PA-C Unavailable [phone] Irene Ardon Unavailable Emory Pratt Primary Care Provider Chiquita Patterson NP Unavailable Encounter Details Date Type Department Care Team (Late st Contact Info) Description 12/13/[address] [place] [address] Chiquita Patterson, [place] [address] Social History Tobacco Use Types Packs/Day Years Used Date Smoking Tobacco: Never Smokeless Tobacco: Never Comments:Smoking History:[facility] er smoker Quit smoking: never smoker Alcohol Use Standard Drinks/Week Comments No 0 (1 standard drink = 0.6 oz pur e alcohol) Housing Answer Date Recorded What is your living situation today? I have a [employer] place to live 11/07/2024 Medications Answer Date Recorded Do you have trouble paying for prescriptions? No 11/07/2024 Utilities Answer Date Recorded Do you have trouble paying f or utilites (heat, electricity, internet, or phone bill)? No 11/07/2024 Caregiving [place] Answer Date Recorded Taking care of a [...] or phone to manage your health (use [employer], see medical records, make appointments, get refills, [...] encounter Miscellaneous Notes * Telephone Encounter - Chiquita Mcwilliams NP - 12/13/2024 10:50 PM EDT I called patient today and he reported experiencing auditory hallucinations for the past two weeks,describing them as voices of people he used to know and calling it a gunn between good and evil. States the voices vary in intensity and distance, sometimes loud, sometimes faint, and sometimes feeling far away. He feels threatened by them, saying they're calling to get me, . These symptoms are causing him significant distress and interfering with daily functioning. 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 His last invega injection was on the 11/27/24, Despite ongoing symptoms, he denies suicidal thoughts or intent to harm himself or others. Patient was advised to seek care At first, he was hesitant about going to [facility] because he previously worked there.He considered the [facility] ,[facility] but worried about the distance. After discussion, he agreed to seek care, saying, Okay, I'll do it, Plan: Advised him to go to [facility] for immediate evaluation and possible medication adjustment. Provided crisis resources: [facility] [phone], Crisis Helpline [phone], Suicide & Crisis Lifeline 662, and after-hours number . No medication changes at this time, deferring to [facility] evaluation. documented in this encounter Plan of Treatment Upcoming Encounters Date Type Department Care Team (Late st Contact Info) Description 01/01/2025 9:40 AM EDT Clinical Support [facility] [address] [place] [phone] 01/12/2025 5:00 PM EDT Office Visit [facility] [address] [place] [phone] Chiquita Patterson NP [address] [facility] [place] [address] documented as of this encounter Visit Diagnoses Not on filedocumented in this encounter Care Teams Bookmaker'S Clerk Relationship Specialty Start Date End Date Emory Pratt FNP PCP - Insurance 10/18/16 Emory Pratt FNP PCP - General 07/11/15 Mark Sethi MD Gastroenterology 06/10/19 Kathleen Bella PA-C Gastroenterology 05/02/20 [place] [address] Gastroenterology 01/04/22 Chiquita Patterson NP [address] [place] [id number] Nurse Practitioner Psychiatry 09/23/24 documented as of this encounter
--- OUTSIDE RECORDS SUMMARY | 2024-12-17 18:09 | XMS_ITS | Encounter Summary ---
Author Organization [facility] r Address [address] [place] [address] Phone Care Team Providers Care Tier Truck Driver Name Role Phone Emory PrattP Unavailable Mark Sethi MD Unavailable Unavailable Kathleen Bella PA-C Unavailable [phone] Irene Ardon Unavailable Emory Pratt Primary Care Provider Chiquita Patterson NP Unavailable Encounter Details Date Type Department Care Team (Late st Contact Info) Description 03/09/2024 Telephone [facility] [address] [place] [phone] Emory Pratt FNP [address] [place] [address] Social History Tobacco Use Types Packs/Day Years Used Date Smoking Tobacco: Never Smokeless Tobacco: Never Comments:Smoking History:[facility] er smoker Quit smoking: never smoker Alcohol Use Standard Drinks/Week Comments No 0 (1 standard drink = 0.6 oz pur e alcohol) Housing Answer Date Recorded What is your living situation today? I have a [place] place to live 03/07/2023 Medications Answer Date Recorded Do you have trouble paying for prescriptions? No 03/07/2023 Utilities Answer Date Recorded Do you have trouble paying f or utilites (heat, electricity, internet, or phone bill)? No 03/07/2023 Caregiving [place] Answer Date Recorded Taking care of a [...] Miscellaneous Notes * Telephone Encounter - Celia Mcmillan - 03/09/2024 12:56 PM EST Send an in-basket message to Security Control Center Operator stating that Senior Director Nancy is requesting a call back. documented in this encounter Plan of Treatment Upcoming Encounters Date Type Department Care Team (Late st Contact Info) Description 01/01/2025 9:40 AM EDT Clinical Support [facility] [address] [place] [phone] 01/12/2025 5:00 PM EDT Office Visit [facility] [address] [place] [phone] [place] [address] documented as of this encounter Visit Diagnoses Not on filedocumented in this encounter Additional Health Concerns Infection Onset Date Last Indicated Resolved Time COVID-19 Rule Out 04/26/2024 04/26/2024 04/26/2024 10:24 AM EST documented as of this encounter Care Teams Tier Truck Driver Relationship Specialty Start Date End Date Emory Pratt FNP PCP - Insurance 10/18/16 Emory Pratt FNP PCP - General 07/11/15 Mark Sethi MD Gastroenterology 06/10/19 Kathleen Bella PA-C Gastroenterology 05/02/20 [place] [address] Gastroenterology 01/04/22 Chiquita Patterson NP [address] [place] [address] Nurse Practitioner Psychiatry 09/23/24 documented as of this encounter
--- OUTSIDE RECORDS SUMMARY | 2024-12-17 18:09 | XMS_ITS | Encounter Summary ---
Author Organization [facility] r Address [address] [place] [address] Phone Care Team Providers Care Shipwright Helper Name Role Phone Emory Pratt Unavailable Mark Sethi MD Unavailable Unavailable Kathleen Bella PA-C Unavailable [phone] Irene Ardon Unavailable Emory Pratt Primary Care Provider Chiquita Patterson NP Unavailable Reason for Visit * Reason Onset Date Comments Medication Refill 08/20/2024 Encounter Details Date Type Department Care Team (Late st Contact Info) Description 08/20/[address] [place] [address] Yola Mock [place], [place] [address] Social History Tobacco Use Types Packs/Day Years [...] internet, or phone bill)? No 04/19/2024 Caregiving [place] Answer Date Recorded Taking care of a [...] or phone to manage your health (use [employer], see medical records, make appointments, get refills, [...] Description 01/01/2025 9:40 AM EDT Clinical Support [facility] [address] [place] [phone] 01/12/2025 5:00 PM EDT Office Visit [facility] [address] [place] [phone] [place] [address] documented as of this encounter Visit Diagnoses Not on filedocumented in this encounter Care Teams Shipwright Helper Relationship Specialty Start Date End Date Emory Pratt FNP PCP - Insurance 10/18/16 Emory Pratt FNP PCP - General 07/11/15 Mark Sethi MD Gastroenterology 06/10/19 Kathleen Bella PA-C Gastroenterology 05/02/20 [place] [address] Gastroenterology 01/04/22 Chiquita Patterson NP [address] [place] [address] Nurse Practitioner Psychiatry 09/23/24 documented as of this encounter
--- OUTSIDE RECORDS SUMMARY | 2024-12-17 18:09 | XMS_ITS | Encounter Summary ---
Author Organization [facility] r Address [address] [place] [address] Phone Care Team Providers Care Core Blower Name Role Phone Emory Pratt Unavailable Mark Sethi MD Unavailable Unavailable Kathleen Bella PA-C Unavailable [phone] Irene Ardon Unavailable [phone] Emory Pratt Primary Care Provider Chiquita Patterson NP Unavailable [phone] Encounter Details Date Type Department Care Team (Late st Contact Info) Description 03/09/[address] [place] [address] Yola Mock MD, [place] [address] Social History Tobacco Use Types Packs/Day Years Used Date Smoking Tobacco: Never Smokeless Tobacco: Never Comments:Smoking History:[facility] er smoker Quit smoking: never [...] internet, or phone bill)? No 03/07/2023 Caregiving [place] Answer Date Recorded Taking care of a [...] Description 01/01/2025 9:40 AM EDT Clinical Support [facility] [address] [place] [address] 01/12/2025 5:00 PM EDT Office Visit [facility] [address] [place] [phone] [place] [address] documented as of this encounter Visit Diagnoses Not on filedocumented in this encounter Additional Health Concerns Infection Onset Date Last Indicated Resolved Time COVID-19 Rule Out 04/26/2024 04/26/2024 04/26/2024 10:24 AM EST documented as of this encounter Care Teams Core Blower Relationship Specialty Start Date End Date Emory Pratt FNP PCP - Insurance 10/18/16 Emory Pratt FNP PCP - General 07/11/15 Mark Sethi MD Gastroenterology 06/10/19 Kathleen Bella PA-C Gastroenterology 05/02/20 [place] [address] Gastroenterology 01/04/22 Chiquita Patterson NP [address] [place] [address] Nurse Practitioner Psychiatry 09/23/24 documented as of this encounter
--- OUTSIDE RECORDS SUMMARY | 2024-12-17 18:09 | XMS_ITS | Clinical Summary ---
Author Organization [facility] Address [address] [place] [address] Care Team Providers Care Dry Charge Process Attendant Name Role Phone ChelseyEmory gerard Primary Care Provider Source Comments PLEASE NOTE, if this patient is a minor, it may be UNLAWFUL to discuss sensitive information that is contained in these records (such as FAMILY PLANNING, MENTAL HEALTH or SUBSTANCE ABUSE) with the minor patient's parent or other person without the patient's specific authorization.[facility] Allergies No known active allergies Medications ketotifen (ZADITOR) 0.025 % (0.035 %) ophthalmic solution 1 drop ou twice daily for allergies 5 Active fluticasone (FLONASE) 50 mcg/actuation nasal spray 2 squirts bilat every day 5 Active loratadine (CLARITIN) 10 mg tablet 1 every day prn allergies 5 Active pantoprazole (PROTONIX) 40 mg EC tabletIndicatio ns:Gastroesopha geal reflux disease without esophagitis,Non -intractable vomiting,Gastro paresis Take 1 Tablet by mouth once daily 30 Tablet 3 3 Active LORazepam (ATIVAN) 1 mg tabletIndicatio ns:Schizoaffect graciela disorder, depressive type (CMS & HHS-HCC),Other specified anxiety disorders Take 1 tab by mouth in the morning and 1 tab by mouth nightly as needed for anxiety 60 Tablet 1 3 Active citalopram (CELEXA) 10 mg tablet Take 3 Tablets by mouth every evening 180 Tablet 3 Active risperiDONE (RISPERDAL) 2 mg tablet Take 1 Tablet by mouth 2 (two) times daily 60 Tablet 1 3 Active risperiDONE (RISPERDAL) 0.5 mg tablet Take 1 Tablet by mouth 2 (two) times daily With the 2mg tablet 60 Tablet 1 3 Active Active Problems Problem Noted Date Diagnosed Date Skin nodule 02/07/2022 Assessment & Plan (02/07/2022 8:07 AM EDT): -Referred for dermatology consult Folliculitis 02/24/2019 Assessment & Plan (02/28/2019 2:31 PM EST): - Doxycycline as directed - F/U if persistent symptoms Prediabetes 07/15/2018 Overview (07/15/2018): Lab Results Component Value Date HGBA1C 5.9 (H) 04/06/2018 HGBA1C 5.4 04/28/2017 HGBA1C 5.4 04/11/2016 Assessment & Plan (10/24/2021 11:51 AM EDT): - Counseled on healthy diet - Increase vegetable intake - Continue with regular exercise - Will repeat A1C today Assessment & Plan (07/15/2018 12:25 PM EDT): - Education done re: diagnosis. Handout given - Counseled re: lifestyle modifications: low carb/sugar diet - Increase vegetable intake - Avoid sugary foods and drinks - Portion control - Maintain a healthy weight - Regular aerobic exercise - Nutrition referral placed today Other specified anxiety disorders 08/20/2016 Encounter for well adult exam with abnormal find ings 08/16/2016 Overview (10/24/2021): 10/23/21 - Well appearing male - Immunizations up to date - Contraception: pt declines, not currently sexually active - Body mass index is 26.5 kg/m - Counseled on healthy eating habits; high fiber, low fat diet, fruits, vegetables - Regular aerobic exercise - Labs as noted - F/U in 1 year Assessment & Plan (08/27/2017 8:33 AM EDT): - Well appearing - Immunizations: TdaP up to date, PPD low risk - Counseled 100% condoms - Counseled re: healthy eating habits; low fat foods, fruits, vegetables, regular physical activity. Limit fast foods - Labs as noted - F/U in 1 year Assessment & Plan (08/18/2016 5:06 PM EDT): - PE done - Immunizations: TdaP up to date, PPD low risk - Counseled 100% condoms - Counseled re: healthy eating habits; low fat foods, fruits, vegetables, regular physical activity. Limit fast foods - Multivitamin supplementation - Labs as noted - F/U in 1 year GERD (gastroesophageal reflux disease) 6 Overview (02/07/2022): EGD 06/21/19 Impression: - Normal esophagus. - Normal stomach. Biopsied. - Normal examined duodenum. Biopsied. Recommendation: - Await pathology results. Surgical path result: A. DUODENUM BIOPSY: DUODENAL MUCOSA WITHIN NORMAL LIMITS. THERE IS NO EVIDENCE OF CELIAC DISEASE. B. STOMACH, BIOPSY: ANTRAL AND CORPUS TYPE MUCOSA SHOWING CHRONIC GASTRITIS, INACTIVE. INTESTINAL METAPLASIA (COMPLETE TYPE) INVOLVING 1 OUT OF 1 ANTRAL TYPE GASTRIC MUCOSA. NO PREMALIGNANT DYSPLASIA SEEN. NO H. PYLORI-LIKE ORGANISMS SEEN ON H&E STAIN. GI consult 09/30/19 Assessment and Plan: This is a 34 y.o. male with a history of schizoaffective disorder, GERD, cyclic vomiting, pre-diabetes presenting for follow-up. 1. Nausea/vomiting. Some improvement with PPI so possibly related to GERD. Would also consider gastroparesis, cyclic vomiting. - Gastric emptying study - Continue omeprazole 20 mg QAM - Frequent, small meals 2. Constipation. High fiber diet. 3. Intestinal metaplasia. Complete type 1/1 antral mucosa on 06/2019 EGD. Recommend against surveillance if asymptomatic. Follow-up plan: In 4 - 6 months Mark Sethi MD [facility] GI follow up 01/04/22 Current Assessment & Plan Andre Rodriguez is a 36 y.o. male w/ hx for n/v who returns to GI for f/u. He was previously followed by Dr. Sethi and most recently Kathleen Bella PA-C for cyclical n/v since 2015. His last f/u was 05/02/20 via telemedicine. Pt has hx for GES that showed mild gastroparesis in 2019. He presents w/ chronic sxs of n/v, early satiety, and bloating. His sxs have been ongoing x 2 yrs. He had relief initially w/ Omeprazole 20 mg once daily but now notes that it is not as effective. His diet is poor and consists of fast foods which tend to be greasy and heavy which is not helpful in a person with gastroparesis. Large heavy greasy fatty meals as I have explained to patient take longer and are harder to digest and can lead to his n/v. He also has some social anxiety which contributes to his public sxs. He has a therapist and is encouraged to discuss his anxiety with them. I do not think there is an indication for a repeat EGD. Some of this could be cyclical but I think a portion is his Gastroparesis. We discussed management with pro motility agents and side effects. Since he has had good response with a PPI , he will trial on Pantoprazole 40 mg BID. Omeprazole has an interaction with one of his psych meds and increases the risk of prolonged QT. I strongly recommend he cut the fast food down or completely. I think this will help. He will f/u in 3 mos. If no improvement we can consider trial of Reglan. Irene Ardon PA [facility] [place] [phone] Assessment & Plan (02/07/2022 8:16 AM EDT): -Much improved with Pantoprazole per pt -Reinforced lifestyle modifications -Keep GI follow up in 04/11 Assessment & Plan (10/24/2021 12:07 PM EDT): - Followed by GI. Pt to schedule his follow up appt - Continue Omeprazole as prescribed - Avoid fatty/greasy and spicy meals, large and late meals, caffeine, etoh, smoking - Avoid laying down after meals - Avoid eating 3 hours prior to bedtime - Elevate head of bed Assessment & Plan (12/17/2019 7:53 AM EDT): - Continue GI follow up - Scheduled for gastric emptying study in 01/28 - Continue Omeprazole - Dietary modifications/small meals Assessment & Plan (02/28/2019 2:37 PM EST): - Hx of cyclic vomiting - Reports improvement since restarted Omeprazole - Discussed dietary modifications - Keep follow up appt with GI Assessment & Plan (08/27/2017 8:20 AM EDT): - Refills sent for Omeprazole - Discussed booking GI f/u - Dietary modifications discussed Assessment & Plan (05/29/2017 11:47 PM EST): - Asymptomatic off Famotidine - Avoid dietary irritants Assessment & Plan (08/18/2016 4:24 PM EDT): - S/p GI consult at [facility] - Pt reports symptoms improvement - Not needing Famotidine - Dietary modifications discussed Assessment & Plan (01/03/2016 7:00 AM EDT): - H. Pylori UBT negative on 12/13/15 - pt continues to be symptomatic. he's s/p ER evaluation at [facility] on 12/19 - he was discharged on Famotidine and Zofran - referral placed for GI consult - counseled to avoid fatty/greasy and spicy meals, large and late meals, caffeine, etoh, smoking - avoid laying down after meals - avoid eating 3 hours prior to bedtime - elevate head of bed Other seasonal allergic rhinitis 09/26/2014 Insomnia due to other mental disorder 09/13/2014 Schizoaffective disorder, depressive type (HCC-C MS) 02/17/2013 Overview (10/24/2021): Six inpatient hospitalizations: [facility] in [place], 2006 (drank hair spray in OD), [facility] 2007, 2008; [facility], [facility], [facility] 06/06-07/10/15 one month Psychiatry: Dr. Moreno, [facility] last July 2012; saw someone [facility] from 2010- 2012; Monika Quinteros MD since January 2013 Therapy: saw a therapist in [place]; none currently Suicide Attempts: kennedy hair spray 2005 Past meds: Risperdal to 6 mg (some stiffness), thorazine (sedated, orthostatic hypotension), Seroquel (ineffective), olanzapine Started on Risperdal Consta at last hospitalization; difficult logistically to come to clinic, so changing to oral risperidone Symptoms: previously hyper-caodaism, lack of sleep, voices, ideas of reference, delusions of poisoning, paranoia Followed by Yola Mock MD Assessment & Plan (02/07/2022 8:15 AM EDT): -PHQ-9 score: 20 today. Exacerbated by the passing of his dad and aunt. Also stress at work -Supportive listening -Continue psych follow up for medication management. Recent visit 01/03/22 -Discussed starting counseling. States this was also brought up during his psych visit but afraid he might not have the time right now. Agreed to consider it -Take psych meds as prescribed -Self care -Regular aerobic exercise -Will continue to monitor Assessment & Plan (10/24/2021 11:37 AM EDT): - Continue psych follow up. Recent visit 10/11/21 - Take psych meds as prescribed - Self care - Regular aerobic exercise Assessment & Plan (01/05/2020 8:28 AM EDT): - Continue psych follow up. Pt to reschedule missed appt on 12/15 - Take psych meds as prescribed - Self care - Regular aerobic exercise Assessment & Plan (10/28/2018 5:53 AM EDT): - Support provided - Continue Citalopram, Risperidone and Lorazepam as prescribed by psych. BUSINESS SERVICES MANAGER was checked prior to providing refill for Lorazepam - Regular aerobic exercise - F/U with psych as scheduled on 11/30/18 Assessment & Plan (09/21/2018 11:40 PM EDT): - Stable - Continue Citalopram, Risperidone and Lorazepam as prescribed by psych. BUSINESS SERVICES MANAGER was checked prior to providing refill for Lorazepam - Regular aerobic exercise' - F/U in 4 weeks. Next psych appt on 11/30/18 Assessment & Plan (09/07/2018 9:44 PM EDT): - Stable - Continue psych meds as prescribed - Pt just refilled his Lorazepam on 08/29/18. Will see him back in 2-3 weeks for refills Assessment & Plan (08/27/2017 8:32 AM EDT): - Continue psych follow up. Currently scheduled for 09/12/17 - Take psych meds as prescribed Assessment & Plan (08/18/2016 5:05 PM EDT): - Continue psych follow up - Take meds as prescribed - Keep psych appt on 08/20 Assessment & Plan (12/16/2015 4:56 PM EDT): - followed by psych. Last seen on 12/10 - encouraged compliance with his psych meds - keep scheduled psych appt on 12/31 Assessment & Plan (07/13/2015 12:06 AM EDT): Continue Risperdal Consta q/2wks for now; unclear if pt will tolerate considering past muscle stiffness Continue propranolol 20 mg BID prn akathisia for now; unclear that pt continues to have akathisia Continue lorazepam 1 mg BID prn anxiety for now; will likely discontinue at next visit Assessment & Plan (07/12/2015 8:35 AM EDT): - pt is s/p inpatient hospitalization at [facility]. He was discharged on 07/10/15 - discharge summary not available to me during today's visit and was requested - pt brought in a list of his discharged meds. He was discharged on propranolol 20 mg q12 h, lorazepam 1 mg twice daily and Risperdal Consta 50 mg d4kdfmd. - He received his last Riperdal injection on 07/10/15. NV booked for 07/24/15 for his next injection. His sister is aware that they have to bring the medication at the nurse visit - dept called and pt was booked to see Dr. Quinteros today. Resolved Problems Problem Noted Date Diagnosed Date Resolved Date Recent change in frequency of bowel movements 05/29/19 18 09/07/2018 Assessment & Plan (05/29/2017 11:42 PM EST): - Bowel pattern discussed - Pt reassured - F/U if any concerns Difficulty swallowing liquids 08/18/2016 09/07/2018 Assessment & Plan (08/18/2016 5:06 PM EDT): - Will refer pt to ENT for evaluation Impacted cerumen of left ear 08/16/2016 05/29/2017 Assessment & Plan (08/18/2016 4:21 PM EDT): - Debrox gtts as directed - Avoid the use of Qtips in ears - NV in 5 days for ear irrigation Intractable cyclical vomiting with nausea 12/08/2015 12/16/2015 Overview (12/08/2015): 3 weeks daily vomiting, nausea, no other sx, negligible weight loss Benign exam today, just tachy UA not dehydrated but + ketones CMP wnl BRAT diet Trial zofran F/u soon with pcp Encounter for general adult medical examination without abnormal findings 09/26/2014 Dizziness and giddiness 09/26/201411/19 Immunizations Immunization Administration Dates Next Due Moderna COVID-19 Vaccine, re d cap blue label, 12+ Primary Series 05/25/2021,08/29/2020,08/01/2020 TDAP 09/26/2014 Family History Medical History Relation Name Comments Thyroid Disease Brother Thyroid Disease Father Heart Problems Maternal Aunt Diabetes Mother Hypertension Mother Cancer Neg Mental illness Neg Stroke Neg Relation Name Status Comments Brother Father Maternal Aunt Mother Social History Tobacco Use Types Packs/Day Years Used Date Smoking Tobacco: Never Smokeless Tobacco: Never Tobacco Cessation:Counseling Given: Not Answered Comments:never smoker Alcohol Use Standard Drinks/Week Comments No 0 (1 standard drink = 0.6 oz pur e alcohol) Social Connections Answer Date Recorded Connectedness 0 12/27/2023 Financial Resource Strain Answer Date R ecorded Financial Resource Strain 0 2021 Stress Answer Date Recorded Stress 0 12/13/2018 Physical Activity Answer Date Recorded Physical Activity 0 12/13/2018 Food Insecurity Answer Date Recorded Food 0 02/04/2022 Transportation Needs Answer Date Record ed Transportation 0 02/04/2022 Housing Stability Answer Date Recorded Housing 0 02/04/2022 Safety and Environment Answer Date Vladimir rded Safety 0 12/13/2018 Utilities Answer Date Recorded Utilities 0 02/04/2022 Employment Answer Date Recorded Stress 0 02/04/2022 Sex and Gender Information Value Date Recorded Sex Assigned at Male 05/29/2017 8:25 PM PST Legal Sex Male 9:06 PM PST Gender Identity Male Sexual Orientation Straight Last Filed Vital Signs Vital Sign Reading Time Taken Comments Blood Pressure 125/84 02/04/2022 1:55 PM EDT Pulse 91 02/04/2022 1:55 PM EDT Temperature 36.9 C (98.5 F) 03/01/2019 1:01 PM EST Respiratory Rate - - Oxygen Saturation 97% 02/04/2022 1:55 PM EDT Inhaled Oxygen Concentration - - Weight 83.5 kg (184 lb) 02/04/2022 1:55 PM EDT Height 176 cm (5' 9.29 ) 10/23/2021 10:09 AM EDT Body Mass Index 26.94 10/23/2021 10:09 AM EDT Plan of Treatment Health Maintenance Due Date Last Done Comments Anxiety Screening 1986 Tobacco Screening 08/16/2017 08/16/2016, , 12/13/2015 Annual Wellness (Adult): Indicated (All Coverage) 10/23/2022 10/23/2021, 01/04/2020, 09/05/2018, Additional history exists Hypertension Screening (#1) 02/04/2023 Alcohol and Drug Screen 04/21/2024 02/05/20, 10/23/2021, 01/04/2020, Additional history exists Depression Annual Screen 04/21/2024 Imm-DTaP/Tdap/Td (2 - Td or Tdap) 09/26/2024 015 Lipid Screening 04/27/2025 04/27/2024, 08/2021, 02/01/2021, Additional history exists Diabetes Screening 05/12/2025 05/12/2024, 0 04/27/2024, 04/23/2024, Additional history exists HIV Screening Completed 09/26/2014 Hepatitis C Screening Completed 10/18/2016 [id number] Discontinued 05/25/2021, 08/19, 08/01/2020 Imm-Hepatitis B Discontinued Imm-Influenza Discontinued Procedures Procedure Name Priority Date/Time Associated Diagnosis Comments HEMOGLOBIN GLYCOSYLATED A1C Routine 10/23/2021 11:40 AM EDT Prediabetes LIPID PANEL Routine 10/23/2021 11:40 AM EDT Encounter for well adult exam with abnormal findings HIV 1/2 RAPID ORASURE (POCT) [id number] Routine 09/26/2014 2:27 PM EDT from Last 3 Months or Most Recently Relevant to Health Maintenance Results * LIPID PANEL (10/23/2021 11:40 AM EDT) Pathologist [facility] CHOLESTEROL, TOTAL 172 <200 mg/dL [facility] HDL CHOLESTEROL 54 > OR = 40 mg/dL [facility]) TRIGLYCERIDES 96 <150 mg/dL [facility] LDL-CHOLESTEROL 99 mg/dL (calc) [facility] Comment: Reference range: <100 Desirable range <100 mg/dL for primary prevention; <70 mg/dL for patients with CHD or diabetic patients with > or = 2 CHD risk factors. LDL-C is now calculated using the Juanito-Ander calculation, which is a validated novel method providing better accuracy than the Friedewald equation in the estimation of LDL-C. Juanito THAO et al. ELMER. 2013;310(19): 3075-7024 (http://education.[employer]/faq/BBH597) CHOL/HDLC RATIO 3.2 <5.0 (calc) [facility] NON HDL CHOLESTEROL 118 <130 mg/dL (calc) [facility]) Comment: For patients with diabetes plus 1 major ASCVD risk factor, treating to a non-HDL-C goal of <100 mg/dL (LDL-C of <70 mg/dL) is considered a therapeutic option. Blood Blood / Unknown 10/23/2021 1 1:40 AM EDT 10/23/2021 11:40 AM EDT Narrative [facility] - 10/24/2021 7:32 AM EDT [facility] Testing performed at: [facility], [email or web address] [place] [email or web address], [address] [place] [address], [place], [address], Medical Record Specialist: Corey Edward [facility] Collection Date/Time: [id number] [facility] Results Received Date/Time: [facility] Reported Date/Time: [id number] FASTING: NO [facility] Testing performed at: [facility], [email or web address] [place] [email or web address], [address] [place] [address], [facility], [place], [address], Medical Record Specialist: Corey Edward [facility] Collection Date/Time: [id number] [facility] Results Received Date/Time: [facility] Reported Date/Time: FASTING: NO [facility] - BLOOD DRAW Final Resu lt [facility]) [address] [place] [address] CLIA #[id number] [place] [address], * A1C (10/23/2021 11:40 AM EDT) HEMOGLOBIN A1C 5.6 <5.7 % of total Hgb [facility] Comment: For the purpose of screening for the presence of diabetes: <5.7% Consistent with the absence of diabetes 5.7-6.4% Consistent with increased risk for diabetes (prediabetes) > or =6.5% Consistent with diabetes This assay result is consistent with a decreased risk of diabetes. Currently, no consensus exists regarding use of hemoglobin A1c for diagnosis of diabetes in children. According to [place] Diabetes Association (ADA) guidelines, hemoglobin A1c <7.0% represents optimal control in non- diabetic patients. Different metrics may apply to specific patient populations. Standards of Medical Care in Diabetes(ADA). Whole Blood Blood / Unknown 10/23/2021 1 1:40 AM EDT 10/23/2021 11:40 AM EDT Narrative [facility] - 10/24/2021 7:49 AM EDT [facility] Testing performed at: [facility], [email or web address] [place] [email or web address], [address] [place] [address], [facility], [place], [address], Medical Record Specialist: Corey Edward [facility] Collection Date/Time: [id number] [facility] Results Received Date/Time: [facility] Reported Date/Time: FASTING: NO [facility] Testing performed at: [facility], [email or web address] [place] [email or web address], [address] [place] [address], [facility], [place], [address], Medical Record Specialist: Corey Edward [facility] Date/Time: [id number] [facility] Results Received Date/Time: [facility] Reported Date/Time: FASTING: NO [facility] Testing performed at: [facility], [email or web address] [place] [email or web address], [address] [place] [address], [facility], [place], [address], Medical Record Specialist: Corey Edward [facility] Date/Time: [id number] [facility] Results Received Date/Time: [facility] Reported Date/Time: FASTING: NO us [facility] - BLOOD DRAW Final Resu lt [facility]) [address] [place] [address] CLIA #[id number] [place] [address], * HIV 1/2 RAPID ORASURE?? (POCT) [id number] (09/26/2014 2:27 PM EDT) HIV Antibody Non Reactive Non Reactive [facility] Comment:A reactive result is a Preliminary Positive for HIV-1 and/or HIV 2 antibodies. Confirmatory Testing to follow per CDC algorithm. 09/26/2014 2:27 PM EDT 09/26/2014 2:27 PM EDT [facility] BODY FLUIDS AND STOOLS AMBULATORY Final Result [facility] [address] [place] [address], from Last 3 Months or Most Recently Relevant to Health Maintenance Insurance [facility] Care Teams Dry Charge Process Attendant Relationship Specialty Start Date End Date [facility] Pratt FNP [address] [place] [address] PCP - General SHIPPING RECEIVING CLERK Nurse Practitioner 07/11/15 Germán Rodriguez 02/14/16
--- OUTSIDE RECORDS SUMMARY | 2024-12-17 18:09 | XMS_ITS | Clinical Summary ---
Author Organization [facility] r Address [address] [place] [address] Phone Care Team Providers Care Order Picker Name Role Phone Verrajani Hyasmine DENTAL LABORATORY TECHNICIAN APPRENTICE Unavailable [phone] Mark Sethi MD Unavailable Unavailable Kathleen Bella PA-C Unavailable [phone] Irene Ardon Unavailable [phone] VerJesús gerardasmine DENTAL LABORATORY TECHNICIAN APPRENTICE Primary Care Provider Chiquita Patterson NP Unavailable Allergies No known active allergies Medications pantoprazole (PROTONIX) 40 mg EC tablet Take 1 tablet (40 mg total) by mouth daily. Swallow whole; do NOT crush, split, or chew. 30 tablet 3 07/12/2024 Active paliperidone palmitate (INVEGA SUSTENNA) 156 mg/mL injection Inject 1 mL (156 mg total) as directed every 28 days. 1 mL 11 08/03/2024 Active OLANZapine (ZYPREXA) 5 MG tabletIndicatio ns:Schizoaffect graciela disorder, depressive type Take 1 tablet at bedtime 90 tablet 11/10/2024 Active melatonin 3 mg TabIndications: Schizoaffective disorder, depressive type Take 2 tablets (6 mg total) by mouth nightly. 180 tablet 11/10/2024 Active propranoloL (INDERAL LA) 60 mg 24 hr capsuleIndicati ons:Schizoaffec tive disorder, depressive type Take 1 capsule (60 mg total) by mouth daily for 90 days. 90 capsule 11/10/2024 02/09/20 Active Active Problems Problem Noted Date Diagnosed Date Hospital discharge follow-up 12/17/2024 Overview (12/17/2024): [facility] Hospital Discharge 12/09/2024: 39 y.o. male with hx of presents with worsened auditory hallucinations with concern for threatening voices, compliant with medications. Vitals are notable for WNL and exam is notable for findings as above. Differential diagnosis includes, but is not limited to, likely psychiatric decompensation. No medical complaints or concerns, I believe this is a primary psychiatric problem not contributed to by medical concerns. Schizoaffective disorder, ch ronic condition with acute exacerbation 04/26/2024 Assessment & Plan (12/17/2024 11:41 AM EDT): 12/10/2024: -Patient seen at [facility] ED on 12/09/2024 due to auditory hallucinations. Patient was evaluated by Psychiatry and was deemed safe and discharged home with close follow up with [facility] Psychiatry. Patient reports that he is adherent to psychiatric medication regimen and is requesting letter to return to work. -Denies SI and HI. No safety concerns -Letter for work provided. Patient with upcoming appointment with [facility] Psychiatry on 12/13/2024 Assessment & Plan (06/22/2024 1:33 PM EST): - schizoaffective with inpatient hospitalization recently - Doing well, stable, reviewed dc summary, pt is supported by family and has an action plan - On Invega inj every 30 days, propranolol daily, olanzapine daily, docusate, ppi - RTC 1 month with BH and PCP - appts scheduled Hematemesis with nausea 11/22/2022 Skin nodule 02/07/2022 Assessment & Plan (02/07/2022 8:07 AM EDT): -Referred for dermatology consult Gastroparesis 01/08/2022 Assessment & Plan (05/13/2022 1:59 PM EST): Andre Rodriguez is a 37 y.o. male presents for f/u for gastroparesis. He is doing well on Pantoprazole 40 mg BID. He rarely has vomiting and this is usually associated w/ brushing his teeth which may have more to do with a gag reflex. Otherwise he is doing well. He is still eating a poor diet which I explained with gastrparesis can cause fullness and bloating related to slow fat digestion. He is working on his diet. We discussed tapering down and eventually off on PPI as long as he continues to do well. He can return to his pcp for f/u Assessment & Plan (01/08/2022 10:25 AM EDT): Prediabetes 07/15/2018 Overview (09/12/2022): Lab Results Component Value Date HGBA1C 5.9 (H) 04/06/2018 HGBA1C 5.4 04/28/2017 HGBA1C 5.4 04/11/2016 Assessment & Plan (10/24/2021 11:49 AM EDT): - Counseled on healthy diet - Increase vegetable intake - Continue with regular exercise - Will repeat A1C today Assessment & Plan (07/15/2018 12:13 PM EDT): - Education done re: diagnosis. Handout given - Counseled re: lifestyle modifications: low carb/sugar diet - Increase vegetable intake - Avoid sugary foods and drinks - Portion control - Maintain a healthy weight - Regular aerobic exercise - Nutrition referral placed today Assessment & Plan (10/24/2021 11:49 AM EDT): - Counseled on healthy diet - Increase vegetable intake - Continue with regular exercise - Will repeat A1C today Assessment & Plan (07/15/2018 12:13 PM EDT): - Education done re: diagnosis. Handout given - Counseled re: lifestyle modifications: low carb/sugar diet - Increase vegetable intake - Avoid sugary foods and drinks - Portion control - Maintain a healthy weight - Regular aerobic exercise - Nutrition referral placed today Other specified anxiety disorders 08/20/2016 Routine adult health maintenance 08/16/2016 Overview (07/14/2024): 07/12/24 -Well appearing male -Immunizations up to date -Body mass index is 29.93 kg/m -Weight management discussed -Healthy eating habits; high fiber, low fat diet, fruits, vegetables -Regular aerobic exercise -Encouraged regular dental care -F/U in 1 year GERD (gastroesophageal reflux disease) 6 Overview (09/12/2022): EGD 06/21/19 Impression: - Normal esophagus. - [...] 4 - 6 months Mark Sethi MD [facility] GI follow up 01/04/22 [...] trial of Reg[place] [address] Other seasonal allergic rhinitis 09/26/2014 Insomnia due to other mental disorder 09/13/2014 Schizoaffective disorder, depressive type (HCC-C MS) 02/17/2013 Overview (09/11/2022): Six inpatient hospitalizations: [facility] in [place], 2005 (drank hair spray in OD), [facility] 2007, 2008[facility] one month Psychiatry: Dr. Moreno, [facility] last July 2012; saw someone at [facility] from [phone]; Monika Quinteros MD since January 2013 Therapy: saw a therapist in [place]; none currently Suicide Attempts: drank hair spray 2005 Past meds: Risperdal to 6 mg (some stiffness), thorazine (sedated, orthostatic hypotension), Seroquel (ineffective), olanzapine Started on Risperdal Consta at last hospitalization; difficult logistically to come to clinic, so changing to oral risperidone Symptoms: previously hyper-baptism, lack of sleep, voices, ideas of reference, delusions of poisoning, paranoia Followed by Yola Mock MD Resolved Problems Problem Noted Date Diagnosed Date Resolved Date Nausea and vomiting 06/10/2019 03/07/20 23 Assessment & Plan (01/08/2022 10:25 AM EDT): Andre Rodriguez is a 36 y.o. male [...] improvement we can consider trial of Reglan. Assessment & Plan (06/10/2019 11:30 AM EST): In young male with history of schizoaffective disorder, with prior normal CMP, CBC, A1c, TSH, RPR, HIV, and H pylori testing. Has previously seen specialist @ [facility]. He reports he had prior abdominal imaging which was reportedly normal. No prior EGD as he was offered, but declined due to anxiety about procedure. Has gained weight, not lost. Patient does not use NSAIDs, alcohol, marijuana, illicit drugs, or cigarettes. Family history of peptic ulcers. His symptoms he reports are worse when he feels more anxious/agitated. Highest suspicion for cyclic vomiting syndrome. -weight gain may be related to risperidone; encouraged healthy eating. -upper endoscopy w/MAC to evaluate. Discussed procedural details at length with patient -obtain records from [facility] -ct to continue current meds at this time Dysuria 06/10/2019 03/07/2023 Assessment & Plan (06/10/2019 11:30 AM EST): Occurred last week, with no associated complaints. Now resolved. -UA, follow up w/PCP Encounters Date Type Department Care Team Description 12/13/[address] [phone] Chiquita Patterson NP 12/13/2024 Orders Only [address] [phone] Chiquita Patterson NP 12/13/[address] [phone] Chiquita Patterson NP Call Back 12/13/[address] [address] Emory Pratt FNP 12/10/2024 3:20 PM EDT Telemedicine [address] [phone] Dinah Pearson NP Hospital discharge follow-up (Primary Dx); Schizoaffective disorder, chronic condition with acute exacerbation 12/09/2024 10:01 AM EDT - 12/09/2024 6:28 PM EDT Emergency [facility] Emergency Department [address] [place] [phone] Merrick Meza MD Gohde, Kyra Hernandez MD Auditory hallucinations (Primary Dx) Discharge Disposition: Home or Self Care 12/09/2024 Travel 11/27/2024 9:40 AM EDT Clinical Support [address] [place] [address] Anahi Wright, NAYLEI Routine adult health maintenance (Primary Dx) 11/10/2024 1:30 PM EDT Office Visit [address] [phone] Chiquita Patterson, BELINDA Schizoaffective disorder, depressive type (Primary Dx) 11/08/[address] [phone] Chiquita Patterson NP Appointment 10/30/2024 9:40 AM EDT Clinical Support [address] [phone] Arely Prater RN Schizoaffective disorder, depressive type (Primary Dx) 10/01/2024 4:00 PM EDT Clinical Support [address] [phone] Rita Agrawal RN Schizoaffective disorder, depressive type (Primary Dx) from Last 3 Months Immunizations Immunization Administration Dates Next Due Covid-19 Vaccine, (MODERNA R ED CAP_12+ PRIMARY SERIES), mRNA, intramuscular PF injection 05/25/2021,08/29/2020 Influenza, injectable, MDCK, preservative free (FLUCELVAX TRIVALENT) 04/19/2024 PPD Test 04/26/2024() TDAP 09/26/2014 Family History Medical History Relation Name Comments Thyroid disease Brother Thyroid disease Father Heart disease Maternal Aunt Diabetes Mellitus Mother Hypertension Mother Cancer Neg Hx Mental illness Neg Hx Stroke Neg Hx Relation Name Status Comments Brother Father Maternal Aunt Mother Social History Tobacco Use Types Packs/Day Years Used Date Smoking Tobacco: Never Smokeless Tobacco: Never Comments:Smoking History:[place] smoker Quit smoking: never smoker Alcohol Use Standard Drinks/Week Comments No 0 (1 standard drink = 0.6 oz pur e alcohol) Housing Answer Date Recorded What is your living situation today? I have a [facility] place to live 11/07/2024 Medications Answer Date Recorded Do you have trouble paying for prescriptions? No 11/07/2024 Utilities Answer Date Recorded Do you have trouble paying f or utilites (heat, electricity, internet, or phone bill)? No 11/07/2024 Caregiving [place] Answer Date Recorded Taking care of a [...] Orientation Straight 09/18/2022 10 :18 PM EDT Last Filed Vital Signs Vital Sign Reading Time Taken Comments Blood Pressure 129/86 12/09/2024 4:27 PM EDT Pulse 78 12/09/2024 4:27 PM EDT Temperature 36.9 C (98.4 F) 12/09/2024 4:27 PM EDT Respiratory Rate 18 12/09/2024 4:27 PM EDT Oxygen Saturation 97% 12/09/2024 4:27 PM EDT Inhaled Oxygen Concentration - - Weight 87.5 kg (193 lb) 12/09/2024 9:48 AM EDT Height 175.3 cm (5' 9 ) 12/09/2024 9:48 AM EDT Body Mass Index 28.5 12/09/2024 9:48 AM EDT Plan of Treatment Upcoming Encounters Date Type Department Care Team (Late st Contact Info) Description 01/01/2025 9:40 AM EDT Clinical Support [facility] FAM[facility] [address] [place] [phone] 01/12/2025 5:00 PM EDT Office Visit [facility]IOR[facility] [address] [place] [phone] Chiquita Patterson NP [address] [place] [address] Health Maintenance Due Date Last Done Comments HEIP Disability Screen 1991 Psych Substance Use Screen 1998 HPV VACCINES (1 - 3-dose SCDM series) 2013 DTAP/TDAP VACCINE (2 - Td or Tdap) 09/26/2024 09/26/2014 BEHAVIORAL HEALTH SCREEN 10/18/202404/19/ 024, 07/19/2023, 07/19/2023, Additional history exists INFLUENZA VACCINE (#1) 2024 04/19/2024, 2012 Oral Health Screen 04/19/2025 04/19/2024 THRIVE SCREENING 05/10/2025 11/07/2024, 03/07/2023 Diabetes Screening 11/10/2025 11/10/2024, 0 04/23/2024, 04/23/2024, Additional history exists LIPID PANEL 11/10/2025 11/10/2024, 0110/2024, 04/23/2024, Additional history exists Zoster Vaccine (1 of 2) 01/08/2036 HIV Lifetime Screening Completed 09/27/2014 Hepatitis C Antibody Lifetime Screening Completed 10/18/2016 COVID-19 Vaccine Discontinued 05/25/2021, 02/2021, 08/01/2020 Hepatitis B Lifetime Screening Completed 07/12/2024 IPV VACCINES Aged Out No longer eligi ble based on patient's age to complete this topic MENINGOCOCCAL B Aged Out No longer el igible based on patient's age to complete this topic Pneumonia Vaccine 0-49 Years Aged Out No longer eligible based on patient's age to complete this topic ROTAVIRUS VACCINES Aged Out No longer eligible based on patient's age to complete this topic Procedures Procedure Name Priority Date/Time Associated Diagnosis Comments POCT GLUCOSE 12/09/2024 10:58 AM EDT LIPID PANEL Routine 11/10/2024 2:11 PM EDT Schizoaffective disorder, depressive type HEMOGLOBIN A1C Routine 11/10/2024 2:11 PM EDT Schizoaffective disorder, depressive type COMPREHENSIVE METABOLIC PANEL Routine 11/10/2024 2:11 PM EDT Schizoaffective disorder, depressive type PROLACTIN Routine 11/10/2024 2:11 PM EDT Schizoaffective disorder, depressive type HEPATITIS B SURFACE ANTIGEN Routine 07/12/2024 5:10 PM EDT Need for hepatitis B screening test HCV AB REFLEX TO CONFIRMATORY/VIRAL LOAD AND GENOTYPE STAT 10/18/2016 1:04 PM EDT from Last 3 Months or Most Recently Relevant to Health Maintenance Results * (ABNORMAL) Glucose, Point of Care (12/09/2024 10:58 AM EDT) Glucose, Point Of Care 118(H) 70 - 110 MG/DL 12/09/2024 10:59 AM EDT [facility] 12/09/2024 10:5 8 AM EDT 12/09/2024 10:59 AM EDT Merrick Meza MD POCT ORDERABLES - DEVICE Final Result Performing Organization Address City/[facility]/ZIP Co de Phone Number [facility] CLIA [id number] [place] [address], [place] * (ABNORMAL) PROLACTIN (11/10/2024 2:11 PM EDT) Prolactin 87.2(H) 3.5 - 19.4 NG/ML 11/10/2024 6:24 PM EDT [facility] Comment: The results of this assay should be interpreted in the context of the patient's faz-spdremjs-gb- and additional relevant clinical and laboratory data. This assay was proven to have no high dose hook effect by the stunner and shackler, Be Spotted. 11/10/2024 2:11 PM EDT 11/10/2024 2:13 PM EDT us Chiquita Mcwilliams NP LAB BLOOD ORDERABLES Final Result [facility] CLIA [id number] [place] [address], [place] * (ABNORMAL) Hemoglobin a1c (11/10/2024 2:11 PM EDT) Hemoglobin A1C 6.1(H) 4.0 - 6.0 % 11/10/2024 2:40 PM EDT [facility] Comment:The Hemoglobin A1c a ssay should not be used to diagnose or monitor diabetes in patients with altered red cell lifespan, such ashomozygous hemoglobin variants, Hb SC, HbF > 5%, and hemolytic anemia. 11/10/2024 2:11 PM EDT 11/10/2024 2:13 PM EDT Chiquita Mcwilliams BUSINESS INSIGHT AND ANALYTICS MANAGER LAB BLOOD ORDERABLES Final Result [facility] CLIA#[id number] [address] [place] [address] * Lipid panel (11/10/2024 2:11 PM EDT) Cholesterol 187 <200 mg/dL 11/10/2024 6:13 PM EDT [facility] Comment:CHOLESTEROL RISK CLA SSIFICATION: <200 MG/DL = LOW RISK, 200 to 239 MG/DL = BORDERLINE/HIGH RISK, >239 MG/DL = HIGH RISK. Triglyceride 131 40 - 200 MG/DL 11/10/2024 6:13 PM EDT [facility] HDL Cholesterol 58 >34 mg/dL 6:13 PM EDT [facility] Comment:HDL CHOLESTEROL RISK CLASSIFICATION: >55 MG/DL = LOW RISK, <35 MG/DL = HIGH RISK. LDL Cholesterol,Calcu lated 103 <130 mg/dL 11/10/2024 6:13 PM EDT [facility] Comment:LDL CHOLESTEROL RISK CLASSIFICATION: <130 MG/DL = LOW RISK, 130 to 159 MG/DL = BORDERLINE RISK, >159 MG/DL = HIGH RISK. 11/10/2024 2:11 PM EDT 11/10/2024 2:13 PM EDT Chiquita Mcwilliams BUSINESS INSIGHT AND ANALYTICS MANAGER LAB BLOOD ORDERABLES Final Result [facility] CLIA [id number] [address] [place] [address], [place] * (ABNORMAL) Comprehensive Metabolic Panel (11/10/2024 2:11 PM EDT) Albumin 3.7 3.5 - 5.0 G/DL 11/10/2024 2:52 PM T [facility] Bilirubin, Total 0.5 0.2 - 1.0 MG/DL 11/10/2024 2:52 PM T [facility] Calcium 9.2 8.4 - 10.0 MG/DL 11/10/2024 2:52 PM EDT [facility] CO2 29.0 21.0 - 32.0 MMOL/L 11/10/2024 2:52 PM T [facility] Comment:triglyceride levels (>1000 mg/dL) may cause falsely low bicarbonate results. Chloride 104 98 - 107 MMOL/L 11/10/2024 2:52 PM T [facility] Glucose 124(H) 74 - 106 MG/DL 11/10/2024 2:52 PM [facility] Alkaline Phosphatase, Total 100 46 - 116 U/L 11/10/2024 2:52 PM T [facility] Comment:The results of this assay should be interpreted in the context of the patient's nmr-rxdlmwlz-ls- and additional relevant clinical and laboratory data. Potassium 3.8 3.5 - 5.0 MMOL/L 11/10/2024 2:52 PM T [facility] Comment:For serum, the lower end of the reference range may be higher by 0.2 to 0.4 mmol/L. Protein, Total 7.5 6.4 - 8.2 G/DL 11/10/2024 2:52 PM T [facility] Comment:The total protein re ference range was established with serum, not plasma. In heparinized plasma, the reference range is expected to be slightly higher, mainly to account for the concentration of fibrinogen, which is absent from serum. Sodium 141 135 - 145 MMOL/L 11/10/2024 2:52 PM T [facility] ALT(SGPT) 31 12 - 78 U/L 11/10/2024 2:52 PM [facility] AST(SGOT) 22 5 - 37 U/L 11/10/2024 2:52 PM T [facility] Urea Nitrogen (BUN) 10 4 - 22 MG/DL 11/10/2024 2:52 PM EDT [facility] Creatinine 1.12 0.50 - 1.40 MG/DL 11/10/2024 2:52 PM EDT [facility] Comment:The results of this assay should be interpreted in the context of the patient's dym-fmzfsdge-mv- and additional relevant clinical and laboratory data. Estimated GFR 86 >59 mL/min/1.7 3_m2 11/10/2024 2:52 PM EDT [facility] Comment: The calculation of eGFR utilizes the 2020 CKD-EPI creatinine equation. eGFR estimates can be inaccurate and may vary from the true level of kidney function. Specific populations in which an eGFR value may be inaccurate or biased include: acute kidney injury, , extremes of muscle mass, age greater than 80 years old. The results of this assay should be interpreted in the context of the patient's xfr-ldgvvqew-jz- and additional relevant clinical and laboratory data. Anion Gap Without Potassium 8 7 - 16 11/10/2024 2:52 PM EDT [facility] 11/10/2024 2:11 PM EDT 11/10/2024 2:13 PM EDT us Chiquita Mcwilliams NP LAB BLOOD ORDERABLES Final Result [facility] CLIA#[id number] [address] [place] [id number] * Hepatitis B Surface Antigen (07/12/2024 5:10 PM EDT) Hep B Surface Ag NON-REACTI VE NON-REACTI VE 07/12/2024 11:26 PM EDT [employer] 07/12/2024 5:10 PM EDT 07/12/2024 5:11 PM EDT us Emory KIMP LAB BLOOD ORDERABLES Final Result Performing Organization Address City/[facility]/ZIP Co de Phone Number [facility] CLIA [id number] [address] [place] [address], [place] * HCV Ab reflex to Confirmatory/Viral load and Genotype (10/18/2016 1:04 PM EDT) Hepatitis C Antibody NON-REACTI VE NON-REACTI VE 10/18/2016 2:16 PM EDT [facility] 10/18/2016 1:04 PM EDT 10/18/2016 1:20 PM EDT us Triage P Emergency LAB BLOOD ORDERABLES Final Re sult [facility] CLIA [id number] [place] [address], from Last 3 Months or Most Recently Relevant to Health Maintenance Advance Directives For more information, please contact: [phone] (Available ) * Full Code (Latest Code Status on File) Date Activated Date Inactivated Comments 04/26/2024 12:25 PM 06/09/2024 4:29 PM Question Answer Comments Does patient have MOLST form? No Reviewed with patient? No Care Teams Order Picker Relationship Specialty Start Date End Date Emory Pratt FNP PCP - Insurance 10/18/16 Emory Pratt FNP PCP - General 07/11/15 Mark Sethi MD Gastroenterology 06/10/19 Kathleen Bella PA-C Gastroenterology 05/02/20 [place] [address] Gastroenterology 01/04/22 Chiquita Patterson NP [address] [place] [id number] Nurse Practitioner Psychiatry 09/23/24
--- OUTSIDE RECORDS SUMMARY | 2024-12-17 18:09 | XMS_ITS | Encounter Summary ---
Author Organization [facility] r Address [address] [place] [address] Phone Care Team Providers Care Crane Ladle Person Name Role Phone Emory Pratt Unavailable [phone] Mark Sethi MD Unavailable Unavailable Kathleen Bella PA-C Unavailable [phone] Irene Ardon Unavailable Emory Pratt Primary Care Provider Chiquita Patterson NP Unavailable [phone] Reason for Visit * Reason Onset Date Comments Medication Refill 07/13/2024 Encounter Details Date Type Department Care Team (Late st Contact Info) Description 07/13/2024 Refill [facility] [address] [place] [address] Emory Pratt FNP [address] [place] [address] Social History Tobacco Use Types [...] internet, or phone bill)? No 04/19/2024 Caregiving [place] Answer Date Recorded Taking care of a [...] 01/01/2025 9:40 AM EDT Clinical Support [facility] [address] [place] [address] 01/12/2025 5:00 PM EDT Office Visit [facility] [address] [place] [address] [place] [address] documented as of this encounter Visit Diagnoses Not on filedocumented in this encounter Care Teams Crane Ladle Person Relationship Specialty Start Date End Date Emory Pratt FNP PCP - Insurance 10/18/16 Emory Pratt FNP PCP - General 07/11/15 aMrk Sethi MD Gastroenterology 06/10/19 Kathleen Bella PA-C Gastroenterology 05/02/20 [place] [address] Gastroenterology 01/04/22 Chiquita Patterson NP [address] [place] [address] Nurse Practitioner Psychiatry 09/23/24 documented as of this encounter
--- OUTSIDE RECORDS SUMMARY | 2024-12-17 18:09 | XMS_ITS | Referral Summary ---
Author Organization [facility] r Address [address] [place] [address] Phone Care Team Providers Care Retail Salesman Name Role Phone Emory Pratt Unavailable Mark Sethi MD Unavailable Unavailable Kathleen Bella PA-C Unavailable [phone] Irene Ardon Unavailable Emory Pratt Primary Care Provider Chiquita Patterson NP Unavailable Encounters Date Type Department Care Team Description 12/13/[address] [phone] Chiquita Patterson NP 12/13/2024 Orders Only [address] [phone] Chiquita Patterson NP 12/13/[address] [phone] Chiquita Patterson NP Call Back 12/13/[address] [phone] Emory Pratt FNP 12/10/2024 3:20 PM EDT Telemedicine [address] [phone] Dinah Pearson NP Hospital discharge follow-up (Primary Dx); Schizoaffective disorder, chronic condition with acute exacerbation 12/09/2024 Travel 12/09/2024 10:01 AM EDT - 12/09/2024 6:28 PM EDT Emergency [facility] Emergency Department [address] [place] [address] Merrick Meza MD Gohde, Kyra Hernandez MD Auditory hallucinations (Primary Dx) Discharge Disposition: Home or Self Care 11/27/2024 9:40 AM EDT Clinical Support [address] [phone] Anahi Wright RN Routine adult health maintenance (Primary Dx) 11/10/2024 1:30 PM EDT Office Visit [address] [phone] Chiquita Patterson NP Schizoaffective disorder, depressive type (Primary Dx) 11/08/[address] [phone] Chiquita Patterson NP Appointment 10/30/2024 9:40 AM EDT Clinical Support [address] [phone] Arely Prater RN Schizoaffective disorder, depressive type (Primary Dx) 10/01/2024 4:00 PM EDT Clinical Support [address] [phone] Rita Agrawal RN Schizoaffective disorder, depressive type (Primary Dx) from Last 3 Months Allergies No known active allergies Medications pantoprazole [...] for 90 days. 90 capsule 11/10/2024 02/09/20 25 Active Active Problems Problem Noted Date Diagnosed Date Hospital discharge follow-up 12/17/2024 Overview (12/17/2024): [facility] Hospital Discharge 12/09/2024: 39 y.o. male with [...] 11:41 AM EDT): 12/10/2024: -Patient seen at [facility] ED on 12/09/2024 due to auditory hallucinations. Patient was evaluated by Psychiatry and was deemed safe and discharged home with close follow up with [facility] Psychiatry. Patient reports that he is adherent to psychiatric medication regimen and is requesting letter to return to work. -Denies SI and HI. No safety concerns -Letter for work provided. Patient with upcoming appointment with [facility] Psychiatry on 12/13/2024 Assessment & Plan (06/22/2024 1:33 PM EST): - schizoaffective with inpatient hospitalization recently - Doing well, stable, reviewed dc summary, pt is supported by family and has an action plan - On Invega inj every 30 days, propranolol daily, olanzapine daily, docusate, ppi - RTC 1 month with and PCP - appts scheduled Hematemesis with [...] trial of Reglan. [place] [address] Other seasonal allergic rhinitis 09/26/2014 Insomnia due to other mental disorder 09/13/2014 Schizoaffective disorder, depressive type (HCC-C MS) 02/17/2013 Overview (09/11/2022): Six inpatient hospitalizations: [facility], 2006 (drank hair spray in OD), [facility] 2007, 2008; [facility], [facility] [place] 06/06-07/10/15 one month Psychiatry: Dr. Moreno, [facility] last July 2012; saw someone at [facility] from [phone]; Monika Quinteros MD since January 2013 Therapy: saw a therapist in [place]; none currently Suicide Attempts: drank hair spray 2005 Past meds: Risperdal to 6 mg (some stiffness), thorazine (sedated, orthostatic hypotension), Seroquel (ineffective), olanzapine Started on Risperdal Consta at last hospitalization; difficult logistically to come to clinic, so changing to oral risperidone Symptoms: previously hyper-yazdanism, lack of sleep, voices, ideas of reference, [...] pylori testing. Has previously seen specialist @ [facility] [place]. He reports he had prior abdominal imaging [...] at length with patient -obtain records from [facility] [place] -ok to continue current meds at this time Dysuria 06/10/2019 03/07/2023 Assessment & Plan (06/10/2019 11:30 AM EST): Occurred last week, with no associated complaints. Now resolved. -UA, follow up w/PCP Immunizations Immunization Administration Dates Next Due Covid-19 Vaccine, (MODERNA R ED CAP_12+ PRIMARY SERIES), mRNA, intramuscular PF injection 05/25/2021,08/29/2020 Influenza, injectable, MDCK, preservative free (FLUCELVAX TRIVALENT) 04/19/2024 PPD Test 04/26/2024() TDAP 09/26/2014 Social History Tobacco Use Types Packs/Day Years Used Date Smoking Tobacco: Never Smokeless Tobacco: Never Comments:Smoking History:Nev er smoker Quit smoking: never smoker Alcohol Use Standard Drinks/Week Comments No 0 (1 standard drink = 0.6 oz pur e alcohol) Housing Answer Date Recorded What is your living situation today? [facility] 11/07/2024 Medications Answer Date Recorded Do you have trouble paying for prescriptions? No 11/07/2024 Utilities Answer Date Recorded Do you have trouble paying f or utilites (heat, electricity, internet, or phone bill)? No 11/07/2024 Caregiving [place] Answer Date Recorded Taking care of a [...] Description 01/01/2025 9:40 AM EDT Clinical Support [facility] [address] [place] [phone] 01/12/2025 5:00 PM EDT Office Visit [facility] [address] [place] [phone] [place] [address] Procedures Procedure Name Priority Date/Time Associated Diagnosis [...] 8 AM EDT 12/09/2024 10:59 AM EDT us Merrick Meza MD POCT ORDERABLES - DEVICE Final Result Performing Organization Address City/[facility]/ZIP Co de Phone Number [facility] CLIA [id number] [place] [address], * (ABNORMAL) PROLACTIN (11/10/2024 2:11 PM EDT) Prolactin 87.2(H) 3.5 - 19.4 NG/ML 11/10/2024 6:24 PM EDT [facility] Comment: The results of this assay should be interpreted in the context of the patient's wgm-nghauyrz-ql- and additional relevant clinical and laboratory data. This assay was proven to have no high dose hook effect by the welfare investigator, [employer]. 11/10/2024 2:11 PM EDT 11/10/2024 2:13 PM EDT us Chiquita Mcwilliams NP LAB BLOOD ORDERABLES Final Result [id number] CLIA [id number] [facility] [place] [address], * (ABNORMAL) Hemoglobin a1c (11/10/2024 2:11 PM EDT) Hemoglobin A1C 6.1(H) 4.0 - 6.0 % 11/10/2024 2:40 PM EDT [facility] Comment:The Hemoglobin A1c a ssay should not be used to diagnose or monitor diabetes in patients with altered red cell lifespan, such ashomozygous hemoglobin variants, Hb SC, HbF > 5%, and hemolytic anemia. 11/10/2024 2:11 PM EDT 11/10/2024 2:13 PM EDT Chiquita Mcwilliams NP LAB BLOOD ORDERABLES Final Result [facility] CLIA#[id number] [address] [place] [address] * Lipid panel (11/10/2024 2:11 PM EDT) [...] PM EDT 11/10/2024 2:13 PM EDT Chiquita Tino Poppy FLIGHT OPERATION COORDINATOR LAB BLOOD ORDERABLES Final Result [facility] CLIA [id number] [address] [place] [address], * (ABNORMAL) Comprehensive Metabolic Panel (11/10/2024 2:11 PM EDT) Albumin 3.7 3.5 - 5.0 G/DL 11/10/2024 2:52 PM EDT [facility] Bilirubin, Total 0.5 0.2 - 1.0 MG/DL 11/10/2024 2:52 PM EDT [facility] Calcium 9.2 8.4 - 10.0 MG/DL 11/10/2024 2:52 PM EDT [facility] CO2 29.0 21.0 - 32.0 MMOL/L 11/10/2024 2:52 PM EDT [facility] Comment:triglyceride levels (>1000 mg/dL) may cause falsely low bicarbonate results. Chloride 104 98 - 107 MMOL/L 11/10/2024 2:52 PM EDT [facility] Glucose 124(H) 74 - 106 MG/DL 11/10/2024 2:52 PM EDT [facility] Alkaline Phosphatase, Total 100 46 - 116 U/L 11/10/2024 2:52 PM EDT [facility] Comment:The results of this assay should be interpreted in the context of the patient's xmj-dtyffvqj-xf- and additional relevant clinical and laboratory data. Potassium 3.8 3.5 - 5.0 MMOL/L 11/10/2024 2:52 PM EDT [facility] Comment:For serum, the lower end of the reference range may be higher by 0.2 to 0.4 mmol/L. Protein, Total 7.5 6.4 - 8.2 G/DL 11/10/2024 2:52 PM EDT [facility] Comment:The total protein re ference range was established with serum, not plasma. In heparinized plasma, the reference range is expected to be slightly higher, mainly to account for the concentration of fibrinogen, which is absent from serum. Sodium 141 135 - 145 MMOL/L 11/10/2024 2:52 PM EDT [facility] ALT(SGPT) 31 12 - 78 U/L 11/10/2024 2:52 PM EDT [facility] AST(SGOT) 22 5 - 37 U/L 11/10/2024 2:52 PM EDT [facility] Urea Nitrogen (BUN) 10 4 - 22 MG/DL 11/10/2024 2:52 PM EDT [facility] Creatinine 1.12 0.50 - 1.40 MG/DL 11/10/2024 2:52 PM EDT [facility] Comment:The results of this assay should be interpreted in the context of the patient's xrj-hxujouol-vr- and additional relevant clinical and laboratory data. Estimated GFR 86 >59 mL/min/1.7 3_m2 11/10/2024 2:52 PM EDT [facility] Comment: The calculation of eGFR [...] interpreted in the context of the patient's suc-kxxfbgwu-vq- and additional relevant clinical and laboratory data. Anion Gap Without Potassium 8 7 - 16 11/10/2024 2:52 PM EDT [facility] 11/10/2024 2:11 PM EDT 11/10/2024 2:13 PM EDT us Chiquita Mcwilliams NP LAB BLOOD ORDERABLES Final Result [facility] CLIA#[id number] [address] [place] [address] * Hepatitis B Surface Antigen (07/12/2024 5:10 PM EDT) Hep B Surface Ag NON-REACTI VE NON-REACTI VE 07/12/2024 11:26 PM EDT [facility] 07/12/2024 5:10 PM EDT 07/12/2024 5:11 PM EDT us Hyasmoctavia Pratt COMPOSITION STONE APPLICATOR LAB BLOOD ORDERABLES Final Result [id number] CLIA [id number] [place] [address], * HCV Ab reflex to Confirmatory/Viral load and Genotype (10/18/2016 1:04 PM EDT) Hepatitis C Antibody NON-REACTI VE NON-REACTI VE 10/18/2016 2:16 PM EDT [id number] 10/18/2016 1:04 PM EDT 10/18/2016 1:20 PM EDT us Triage P Emergency LAB BLOOD ORDERABLES Final Re sult Performing Organization Address City/[facility]/ZIP Co de Phone Number [id number] CLIA [id number] [place] [address], from Last 3 Months or Most Recently Relevant to Health Maintenance Advance Directives For more information, please contact: [phone] (Available ) * Full Code (Latest Code Status on File) Date Activated Date Inactivated Comments 04/26/2024 12:25 PM 06/09/2024 4:29 PM Question Answer Comments Does patient have MOLST form? No Reviewed with patient? No Care Teams Retail Salesman Relationship Specialty Start Date End Date Emory Pratt FNP PCP - Insurance 10/18/16 Emory Pratt COMPOSITION STONE APPLICATOR PCP - General 07/11/15 Mark Sethi MD Gastroenterology 06/10/19 Kathleen Bella, [facility]ARR[facility] Gastroenterology 05/02/20 [place] [address] Gastroenterology 01/04/22 Chiquita Patterson NP [address] [place] [address] Nurse Practitioner Psychiatry 09/23/24
[2024-12-17 18:20] VITALS: BP 120/70; PULSE 84; RESP 16; TEMP 37.1; O2SAT 94
[2024-12-17 19:10] VITALS: BMI 27.0
--- NOTE | 2024-12-17 19:12 | PC.NURSE ---
Pt arrived to at 1820 on a CV. Safety check completed, skin check unremarkable. VS obtained and documented. Pt oriented to unit, and provided with toiletries, meal, and water. Pt also given menu to select meals for tomorrow. Pt gave verbal permission to call his pharmacy [facility] in [place] for med rec. Med rec completed, and pt confirmed the medication list provided by pharmacy was complete and accurate. Covering provider Sera Rosenbaum NP notified. Admission to be completed by assigned RN.
[2024-12-17 20:00] VITALS: BP 115/64; PULSE 73; RESP 73; TEMP 37.2; O2SAT 99
--- NOTE | 2024-12-18 00:05 | PC.ADMIT ---
Andre was admitted to [facility] for the treatment of schizoaffective d/o bipolar type, with anxiety and depression. he is pleasant and cooperative although somewhat difficult to understand r/t a very heavy accent. He was oriented X's 2 believing he is in [place]. he endorses racing thoughts, anxiety, depression and auditory hallucinations. he denies visual hallucinations stating that he had experienced that several years ago but not now. he states that he lives with his sister and that his housing is stable he denies having a therapist but indicates that he has a positive relationship with his psychologist and PCP. he denies drug/etoh use. he did not disclose the content of his AH but simply stated that's why I'm here the voices are bad. all consents. no behavioral concerns, monitor for safety
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
[2024-12-18 09:00] VITALS: BP 114/67; PULSE 79; RESP 16; TEMP 37.3; O2SAT 99
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
[2024-12-18 20:00] VITALS: BP 109/59; PULSE 77; RESP 15; TEMP 36.9; O2SAT 98
[2024-12-19 08:00] VITALS: BP 111/69; PULSE 75; RESP 18; TEMP 36.9; O2SAT 99
--- NOTE | 2024-12-19 08:36 | P.PNPSI_ITS ---
Subjective Subjective Date of Service: 12/19/24 Reason For Visit: schizoaffective d/o, bipolar type Interim History: Patient seen. He is mostly isolated. He says the voices are farther away but still believes in a war going on between good and evil and that he has to fast a pray but nothing works. He continues with paranoid delusions about thought insertion and people reading his mind. We discussed optimizing Olanzapine which he agrees to. He denies SI/HI. Review of Systems Review of Systems Yes all other systems are reviewed and are negative Mental Status Exam Mental Status Exam Narrative: General appearance: casually appropriate dress. Good hygiene.? Eye contact: intense. Musculoskeletal: Normal muscle strength/tone, Normal gait and station, No abnormal involuntary movements like tremors, EPS or dyskinesia. No psychomotor agitation or retardation. Normal posture.??? Manner/behavior: cooperative and not guarded Speech:? Low volume and tone. Heavy accent. Difficult to understand at times. Language: No receptive or expressive language impairment? Mood and Affect: blunted to flat. Congruent to mood and without lability? Thought process/associations: Linear with no flight of ideas or loose associations.?? Thought content:?Delusions and paranoia.?? Hallucinations: CAH? Suicidality/self-destructive behavior: none at this time, hopeful.? ? Homicidally/violence: none.? Reliability: good.? ? Judgment: preserved.? ? Insight: preserved Cognition: Alert and oriented to time, place and person. Attention, concentration and fund of knowledge are normal.? Impulse control and emotional regulation: preserved. Intelligence estimate: average.? Diagnostics Vital Signs (24Hr): Vital Signs - 24 hr 12/18/24 09:00 12/18/24 20:00 12/19/24 08:00 Temperature 99.1 F 98.4 F 98.4 F Pulse Rate 79 77 75 Respiratory Rate 16 15 18 Blood Pressure 114/67 109/59 L 111/69 Pulse Oximetry 99 98 99 Oxygen Delivery Method Room Air Room Air BMI result Body Mass Index 27.0 Labs 12/19/24 08:19 Medications Medications Current Medications Acetaminophen (Acetaminophen 325 Mg Tablet) 650 mg PO Q6H PRN PRN Reason: Headache/Pain, Scale 1-10 Al Hydroxide/Mg Hydroxide (Magnesium Hydrox/Alum Hydrox 30 Ml Oral.Susp) 30 ml PO Q6H PRN PRN Reason: Heartburn/Nausea Hydroxyzine HCl (Hydroxyzine Hcl 25 Mg Tablet) 25 mg PO Q6H PRN PRN Reason: mild anxiety Magnesium Hydroxide (Milk Of Magnesia 30 Ml Oral.Susp) 30 ml PO DAILY PRN PRN Reason: Constipation Melatonin (Melatonin 3 Mg Tablet) 6 mg PO BEDTIME [facility] Last Admin: 12/18/24 21:51 Dose: 6 mg Nicotine (Nicotine 21 Mg Patch.Td24) 21 mg TRANSDERMA DAILY PRN PRN Reason: nicotine craving Nicotine Polacrilex (Nicotine Polacrilex 2 Mg Gum) 2 mg BUCCAL Q2H PRN PRN Reason: Nicotine Cravings Olanzapine (Olanzapine 5 Mg Tablet) 5 mg PO BEDTIME [facility] Last Admin: 12/18/24 21:51 Dose: 5 mg Omeprazole (Omeprazole 20 Mg Capsule.Dr) 20 mg PO DAILY@0630 [facility] Last Admin: 12/19/24 06:44 Dose: 20 mg Paliperidone Palmitate (Paliperidone Palmitate 156 Mg/Ml Syringe) 156 mg IM Q28D [facility] Propranolol HCl (Propranolol Hcl 20 Mg Tablet) 60 mg PO DAILY [facility]; Protocol Last Admin: 12/18/24 09:27 Dose: 60 mg Trazodone HCl (Trazodone Hcl 50 Mg Tablet) 50 mg PO BEDTIME MRX1 PRN PRN Reason: Insomnia Allergies Allergies Allergy/AdvReac Type Severity Reaction Status Date / Time No Known Allergies Allergy Verified 12/17/24 18:16 Assessment & Plan Assessment & Plan (1) Anxiety: Status: Acute Code(s): F41.9 - Anxiety disorder, unspecified (2) Depression: Status: Acute Code(s): F32.A - Depression, unspecified (3) Schizoaffective disorder: Status: Acute Code(s): F25.9 - Schizoaffective disorder, unspecified Plan 39 yo male with a schizoaffective disorder presents with increase in psychotic symptoms including CAH and delusions. Unclear precipitants at this time. PLAN: - Admit to inpatient psychiatry - CV - Collateral information from family and providers. - Milieu treatment and group therapy. - Medications: Continue same. Recent increase in Olanzapine. Feels it helps. - Social work evaluation. - Disposition planning. 12/19: Increase Olanzapine 10 mg HS. Reason for continued inpatient stay Substantial Risk for: inability to function and rapid decompensation Time Spent With Patient Time: Total time managing care of this patient today ____ minutes.
[2024-12-19 08:43] LABS: Hemoglobin A1C 155.7880 umol/L; Total Hemoglobin (HGBA1C) 3619.2986 umol/L
[2024-12-19 08:59] LABS: Alanine Aminotransferase 16 U/L (0-40); Albumin Level 4.5 g/dL (3.5-5.0); Alkaline Phosphatase 79 U/L (39-117); Anion Gap 13 (12-20); Aspartate Amino Transferase 23 U/L (5-37); Blood Urea Nitrogen 7 mg/dL (9-16); Calcium 9.0 mg/dL (8.4-10.2); Carbon Dioxide 24 mmol/L (22-29); Chloride 110 mmol/L (96-108); Cholesterol 161 mg/dL (<200); Creatinine Clr Calc Pharmacy 108.8; Estimated Glomerular Filt Rate > 60; HDL Cholesterol 34 mg/dL (>40); Potassium 4.5 mmol/L (3.3-5.1); Sodium 142 mmol/L (135-145); Total Protein 7.4 g/dL (6.5-8.0); Triglycerides 61 mg/dL (<150)
[2024-12-19 09:15] LABS: Free T4 (Free Thyroxine) 1.26 ng/dL (0.71-1.85); Thyroid Stimulating Hormone 1.93 uIU/mL (0.32-4.0)
[2024-12-19 20:00] VITALS: BP 123/57; PULSE 77; RESP 16; TEMP 37.2; O2SAT 98
[2024-12-20 08:00] VITALS: BP 120/63; PULSE 67; RESP 18; TEMP 36.7; O2SAT 99
--- NOTE | 2024-12-20 09:45 | HO.PSYCHPN ---
Subjective Subjective Date of Service: 12/20/24 Reason For Visit: schizoaffective d/o, bipolar type Interim History: Patient seen. He reports his brain is more foggy today but the voices are further away. He reports feeling depressed. He is mostly isolated and withdrawn. Discussed antidepressants with patient. Would help to get collateral information about previous trials from family and providers. He recalls he was on Zoloft and Lexapro in the past but doesn't remember fully how they affected him and why they were stopped. He says the voices are farther away but still believes in a war going on between good and evil . He denies SI/HI. Review of Systems Review of Systems Yes all other systems are reviewed and are negative Mental Status Exam Mental Status Exam Narrative: General appearance: casually appropriate dress. Good hygiene.? Eye contact: intense. Musculoskeletal: Normal muscle strength/tone, Normal gait and station, No abnormal involuntary movements like tremors, EPS or dyskinesia. No psychomotor agitation or retardation. Normal posture.??? Manner/behavior: cooperative and not guarded Speech:? Low volume and tone. Heavy accent. Difficult to understand at times. Language: No receptive or expressive language impairment? Mood and Affect: blunted to flat. Congruent to mood and without lability? Thought process/associations: Linear with no flight of ideas or loose associations.?? Thought content:?Delusions and paranoia.?? Hallucinations: CAH? Suicidality/self-destructive behavior: none at this time, hopeful.? ? Homicidally/violence: none.? Reliability: good.? ? Judgment: preserved.? ? Insight: preserved Cognition: Alert and oriented to time, place and person. Attention, concentration and fund of knowledge are normal.? Impulse control and emotional regulation: preserved. Intelligence estimate: average.? Diagnostics Vital Signs (24Hr): Vital Signs - 24 hr 12/19/24 20:00 12/20/24 08:00 Temperature 98.9 F 98.1 F Pulse Rate 77 67 Respiratory Rate 16 18 Blood Pressure 123/57 L 120/63 Pulse Oximetry 98 99 Oxygen Delivery Method Room Air Room Air BMI result Body Mass Index 27.0 Labs 12/19/24 08:19 Labs: Laboratory Results - last 48 hr 12/19/24 08:19 Sodium 142 Potassium 4.5 Chloride 110 H Carbon Dioxide 24 Anion Gap 13 BUN 7 L Creatinine 0.92 Estim Creat Clear Calc 108.8 Estimated GFR > 60 Random Glucose 89 Estimat Average Glucose 128 Hemoglobin A1c % 6.1 H Calcium 9.0 Total Bilirubin 0.6 AST 23 ALT 16 Alkaline Phosphatase 79 Total Protein 7.4 Albumin 4.5 Triglycerides 61 Cholesterol 161 LDL Cholesterol, Calc 115 H HDL Cholesterol 34 L TSH 1.93 Free T4 1.26 Medications Medications Current Medications Acetaminophen (Acetaminophen 325 Mg Tablet) 650 mg PO Q6H PRN PRN Reason: Headache/Pain, Scale 1-10 Al Hydroxide/Mg Hydroxide (Magnesium Hydrox/Alum Hydrox 30 Ml Oral.Susp) 30 ml PO Q6H PRN PRN Reason: Heartburn/Nausea Hydroxyzine HCl (Hydroxyzine Hcl 25 Mg Tablet) 25 mg PO Q6H PRN PRN Reason: mild anxiety Magnesium Hydroxide (Milk Of Magnesia 30 Ml Oral.Susp) 30 ml PO DAILY PRN PRN Reason: Constipation Melatonin (Melatonin 3 Mg Tablet) 6 mg PO BEDTIME [facility] Last Admin: 12/19/24 20:20 Dose: 6 mg Nicotine (Nicotine 21 Mg Patch.Td24) 21 mg TRANSDERMA DAILY PRN PRN Reason: nicotine craving Nicotine Polacrilex (Nicotine Polacrilex 2 Mg Gum) 2 mg BUCCAL Q2H PRN PRN Reason: Nicotine Cravings Olanzapine (Olanzapine 10 Mg Tablet) 10 mg PO BEDTIME [facility] Last Admin: 12/19/24 20:20 Dose: 10 mg Omeprazole (Omeprazole 20 Mg Capsule.Dr) 20 mg PO DAILY@0630 [facility] Last Admin: 12/20/24 06:19 Dose: 20 mg Paliperidone Palmitate (Paliperidone Palmitate 156 Mg/Ml Syringe) 156 mg IM Q28D [facility] Propranolol HCl (Propranolol Hcl 20 Mg Tablet) 60 mg PO DAILY [facility]; Protocol Last Admin: 12/20/24 08:44 Dose: 60 mg Trazodone HCl (Trazodone Hcl 50 Mg Tablet) 50 mg PO BEDTIME MRX1 PRN PRN Reason: Insomnia Allergies Allergies Allergy/AdvReac Type Severity Reaction Status Date / Time No Known Allergies Allergy Verified 12/17/24 18:16 Assessment & Plan Assessment & Plan (1) Anxiety: Status: Acute Code(s): F41.9 - Anxiety disorder, unspecified (2) Depression: Status: Acute Code(s): F32.A - Depression, unspecified (3) Schizoaffective disorder: Status: Acute Code(s): F25.9 - Schizoaffective disorder, unspecified Plan 39 yo male with a schizoaffective disorder presents with increase in psychotic symptoms including CAH and delusions. Unclear precipitants at this time. PLAN: - Admit to inpatient psychiatry - CV - Collateral information from family and providers. - Milieu treatment and group therapy. - Medications: Continue same. Recent increase in Olanzapine. Feels it helps. - Social work evaluation. - Disposition planning. 12/19: Increase Olanzapine 10 mg HS. 12/20: Continue current medications. Consider AD trial after obtaining history of med trials, effects or history of baudilio. Reason for continued inpatient stay Substantial Risk for: inability to function and rapid decompensation Time Spent With Patient Time: Total time managing care of this patient today ____ minutes.
[2024-12-20 19:54] VITALS: BP 133/75; PULSE 94; RESP 15; TEMP 37.9; O2SAT 96
[2024-12-21 08:00] VITALS: BP 113/72; PULSE 100; TEMP 36.9; O2SAT 97
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
[2024-12-21] MEDS: Paliperidone ER 9 MG TAB.ER.24 PO (13:10)
[2024-12-21 20:00] VITALS: BP 117/55; PULSE 84; RESP 16; TEMP 37.2; O2SAT 96
[2024-12-22 08:05] VITALS: BP 120/55; PULSE 93; RESP 18; TEMP 36.8; O2SAT 97
[2024-12-22] MEDS: Paliperidone ER 9 MG TAB.ER.24 PO (08:43)
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
[2024-12-22 19:48] VITALS: BP 119/69; PULSE 83; RESP 16; TEMP 36.8; O2SAT 99
[2024-12-23 07:00] VITALS: BMI 27.1
[2024-12-23 08:00] VITALS: BP 113/62; PULSE 82; RESP 16; TEMP 37.1; O2SAT 97
[2024-12-23 08:41] VITALS: BP 113/62; PULSE 82
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
[2024-12-23 20:00] VITALS: BP 117/72; PULSE 84; RESP 16; TEMP 36.6; O2SAT 98
[2024-12-24 08:33] VITALS: BP 119/57; PULSE 76; TEMP 37.7; O2SAT 96
[2024-12-24 13:00] VITALS: BP 132/78; PULSE 77; TEMP 37.4; O2SAT 96
[2024-12-24] MEDS: diazePAM 10 MG/2 ML CARTRIDGE IM (13:02)
[2024-12-24 13:38] VITALS: BP 114/67; PULSE 82; TEMP 37.9; O2SAT 95
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
[2024-12-24 20:00] VITALS: BP 117/75; PULSE 86; TEMP 37.2; O2SAT 96
[2024-12-25 08:00] VITALS: BP 114/68; PULSE 105; TEMP 37.1; O2SAT 96
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
[2024-12-25 20:00] VITALS: BP 110/54; PULSE 83; RESP 16; TEMP 37.2; O2SAT 98
[2024-12-26 07:50] VITALS: BP 127/61; PULSE 114; TEMP 36.9; O2SAT 97
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
[2024-12-26 10:24] LABS: Neut%MD 64.4 %; WBCANC 4.9 X10*3/uL
[2024-12-26 20:00] VITALS: BP 126/83; PULSE 129; RESP 15; TEMP 36.9; O2SAT 98
[2024-12-27 08:10] VITALS: BP 128/69; PULSE 94; RESP 16; TEMP 37.6; O2SAT 96
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
[2024-12-27 20:00] VITALS: BP 121/53; PULSE 77; RESP 18; TEMP 36.9; O2SAT 96
[2024-12-28 07:54] VITALS: BP 125/73; PULSE 87; TEMP 37.1; O2SAT 97
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
[2024-12-28 20:00] VITALS: BP 116/67; PULSE 95; RESP 17; TEMP 37.2; O2SAT 98
[2024-12-29 08:58] VITALS: BP 135/79; PULSE 95; RESP 14; TEMP 36.3; O2SAT 97
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
[2024-12-29 20:00] VITALS: BP 114/78; PULSE 87; RESP 16; TEMP 36.6; O2SAT 97
[2024-12-30 08:00] VITALS: BP 132/81; PULSE 107; TEMP 36.3; O2SAT 98
[2024-12-30 20:00] VITALS: BP 131/70; PULSE 92; RESP 16; TEMP 37.1; O2SAT 99
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
[2024-12-31 08:54] VITALS: BP 122/58; PULSE 96
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
[2025-01-01 08:00] VITALS: BP 112/57; PULSE 95; RESP 18; TEMP 36.4; O2SAT 97
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
[2025-01-01 19:54] VITALS: BP 122/61; PULSE 90; RESP 15; TEMP 36.9; O2SAT 98
[2025-01-02 08:00] VITALS: BP 115/75; PULSE 91; RESP 16; TEMP 37.3; O2SAT 96
[2025-01-02 19:56] VITALS: BP 119/67; PULSE 86; RESP 15; TEMP 36.9; O2SAT 98
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
[2025-01-03 08:00] VITALS: BP 132/67; PULSE 100; TEMP 37.2; O2SAT 97
[2025-01-03 08:45] LABS: Neut%MD 55.5 %; WBCANC 5.2 X10*3/uL
[2025-01-03 20:00] VITALS: BP 127/76; PULSE 97; RESP 18; TEMP 37.4; O2SAT 98
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
[2025-01-04 08:00] VITALS: BP 128/81; PULSE 116; TEMP 36.6; O2SAT 98
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
[2025-01-04 20:00] VITALS: BP 127/77; PULSE 107; RESP 18; TEMP 36.8; O2SAT 98
[2025-01-05 08:35] VITALS: BP 109/81; PULSE 100; RESP 16; TEMP 36.9; O2SAT 98
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
[2025-01-05 20:00] VITALS: BP 124/74; PULSE 94; RESP 18; TEMP 37.1; O2SAT 100
[2025-01-06 07:00] VITALS: BMI 27.1
[2025-01-06 08:38] VITALS: BP 132/68; PULSE 88; RESP 16; TEMP 37.4; O2SAT 99
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
[2025-01-06 20:00] VITALS: BP 114/64; PULSE 102; RESP 18; TEMP 37.1; O2SAT 99
[2025-01-07 09:22] VITALS: BP 134/60; PULSE 109; TEMP 36.9; O2SAT 97
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
[2025-01-08 08:00] VITALS: BP 132/72; PULSE 80; TEMP 36.9; O2SAT 96
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
[2025-01-08 20:56] VITALS: BP 124/73; PULSE 125; RESP 16; TEMP 36.9; O2SAT 99
[2025-01-09 08:00] VITALS: BP 132/69; PULSE 107; TEMP 37.2; O2SAT 97
[2025-01-09 08:16] LABS: Neut%MD 47.5 %; WBCANC 4.3 X10*3/uL
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
[2025-01-09] MEDS: Magnesium Hydrox/Alum Hydrox 30 ML ORAL.SUSP PO ×2 (13:05→20:21)
[2025-01-09 20:00] VITALS: BP 140/76; PULSE 109; RESP 16; TEMP 36.6; O2SAT 98
[2025-01-10 08:15] VITALS: BP 152/88; PULSE 99; RESP 16; TEMP 36.8; O2SAT 98
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
[2025-01-10 20:57] VITALS: BP 124/84; PULSE 102; RESP 16; TEMP 36.2; O2SAT 99
[2025-01-11 08:00] VITALS: BP 110/69; PULSE 108; TEMP 36.4; O2SAT 98
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
[2025-01-11 20:50] VITALS: BP 158/80; PULSE 110; RESP 18; TEMP 36.7; O2SAT 99
[2025-01-12 08:00] VITALS: BP 117/58; PULSE 115; TEMP 36.9; O2SAT 99
[2025-01-12 08:11] LABS: Neut%MD 51.4 %; WBCANC 4.8 X10*3/uL
[2025-01-12 20:00] VITALS: BP 116/63; PULSE 88; RESP 16; TEMP 36.4; O2SAT 98
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
[2025-01-13 07:00] VITALS: BMI 27.1
[2025-01-13 08:25] VITALS: BP 119/60; PULSE 113; TEMP 36.8; O2SAT 96
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
[2025-01-13 20:00] VITALS: BP 130/81; PULSE 87; RESP 18; TEMP 36.4; O2SAT 95
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
[2025-01-14 09:05] VITALS: BP 131/67; PULSE 97; RESP 16; TEMP 35.9; O2SAT 97
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
== END 2025-01-14 11:15 | disposition home or self-care (01) | DRG 750 ==
PROVIDERS: Nurse Practitioner Psychiatric/Mental Health; Admitting Provider Psychiatry & Neurology Psychiatry; Visit Provider Psychiatry & Neurology Psychiatry
DX: F25.1 Schizoaffective disorder, depressive type (principal); F43.10 Post-traumatic stress disorder, unspecified; Z79.899 Other long term (current) drug therapy
CPT/HCPCS: 36415; 80053; 80061; 83036; 84439; 84443; 85048; J3360

== ENCOUNTER → 2024-12-17 18:02 | Outpatient (BNV) | payer OTHER, SELFPAY | PROVIDERS: Admitting Provider Psychiatry & Neurology Psychiatry; Visit Provider Physician Assistant | DX: F41.9 Anxiety disorder, unspecified (principal); F32.A Depression, unspecified | CPT/HCPCS: 99222 ==

== ENCOUNTER → 2024-12-17 18:02 | Outpatient (BNV) | payer OTHER, SELFPAY | PROVIDERS: Admitting Provider Psychiatry & Neurology Psychiatry; Visit Provider Psychiatry & Neurology Psychiatry | DX: F25.1 Schizoaffective disorder, depressive type (principal); F43.11 Post-traumatic stress disorder, acute | CPT/HCPCS: 90792; 99232 ==